=== PATIENT | male | born 1965 | race Caucasian/White ===

== ENCOUNTER 2023-10-28 23:07 | Inpatient (IN) ==
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
[2023-10-28 23:47] LABS: Basophils # (auto) 0.07 K/uL (0.00-0.20); Basophils % (auto) 0.6 %; Eosinophils # (auto) 0.32 K/uL (0.00-0.50); Eosinophils % (auto) 2.7 %; Hematocrit (blood only) 49.6 % (42.0-52.0); Hemoglobin 16.7 g/dl (14.0-18.0); Immature Granulocytes # (auto) 0.11 K/uL (0.01-0.20); Immature Granulocytes % (auto) 0.9 %; Lymphocytes # (auto) 3.69 K/uL (1.20-3.40); Lymphocytes % (auto) 30.7 %; Mean Corpuscular Hemoglobin 29.7 pg (25.0-34.0); Mean Corpuscular Hgb Conc 33.7 g/dL (32.0-36.0); Mean Corpuscular Volume 88.1 fL (80.0-100.0); Mean Platelet Volume 9.3 fL (9.4-12.4); Monocytes # (auto) 1.09 K/uL (0.11-0.59); Monocytes % (auto) 9.1 %; Neutrophils # (auto) 6.73 K/uL (1.40-6.50); Platelet Count 250 K/uL (130-400); RDW Coefficient of Variation 14.6 % (11.5-14.5); RDW Standard Deviation 46.8 fL (36.4-46.3); Red Blood Count 5.63 M/uL (4.70-6.10); White Blood Count 12.01 K/ul (4.8-10.8)
[2023-10-28 23:52] LABS: Appearance Urine Cloudy (Clear); Bacteria Urine Automated None Seen (None Seen); Bilirubin Urine Negative (Negative); Blood Urine Negative (Negative); Cast Urine Automated 0-2 /lpf (0-2); Color Urine Yellow; Epithelial Cell Urine Auto 0-2 /hpf (0-2); Glucose Urine UA Negative (Negative); Ketones Urine Negative (Negative); Leukocyte Esterase Urine Negative (Negative); Nitrite Urine Negative (Negative); Protein Urine Negative (Negative); RBC Urine Automated 0-2 /hpf (0-2); Specific Gravity Urine 1.007 (1.000-1.030); Urobilinogen Urine Negative (Negative); WBC Urine Automated 0-5 /hpf (0-5); pH Urine 5.5 (4.5-7.5)
[2023-10-29 00:04] LABS: Albumin Globulin Ratio 1.4 (0.9-2); Albumin Level 4.5 gm/dl (3.4-5.0); BUN Creatinine Ratio 15.9 (10-20); Bilirubin,Total 0.4 mg/dl (0.2-1.0); Calcium 9.4 mg/dl (8.6-10.3); Est GFR (Non-African American) 97.5 ml/min; Globulin 3.2 gm/dl (2.5-4.0); Total Protein 7.7 gm/dl (6.0-8.3)
[2023-10-29 00:18] LABS: Thyroid Stimulating Hormone 2.431 uIu/ml (0.300-4.500)
[2023-10-29 00:36] LABS: Acetaminophen < 3 ug/ml (10-30); Salicylate < 3.0 mg/dl (3.0-30)
[2023-10-29 00:36] LABS: Amphetamines+Metham, Urine Neg (Neg); Barbiturates, Urine Neg (Neg); Benzodiazepine, Urine Pos (Neg); Cocaine, Urine Neg (Neg); Fentanyl, Urine Neg (Neg); MDMA (Ecstacy), Urine Neg (Neg); Marijuana, Urine Neg (Neg); Methadone, Urine Neg (Neg); Opiate, Urine Neg (Neg); Phencyclidine, Urine Neg (Neg)
[2023-10-29] MEDS: ALBUT/IPRATROP 3MG/0.5MG NEB 3 ML VIAL NEB STA (01:10)
--- NOTE | 2023-10-29 06:35 | XRay Report ---
XR chest 1V portable CLINICAL HISTORY: h/o emphysema COMPARISON STUDY: No previous studies for comparison. FINDINGS: Lung volumes are normal. There is no consolidation. Linear right basilar density represents atelectasis. No pulmonary nodules are identified although sensitivity is diminished given radiograph ic technique. There is no pneumothorax or pleural effusion. Cardiac size is normal. Mediastinal conto urs are normal. There is no evidence for pulmonary edema. IMPRESSION: No acute cardiopulmonary findings. ACT 112: Negative or not required by law. Electronically signed by: Dorian Rosa M.D. 10/29/2023 6:34 AM
--- NOTE | 2023-10-29 09:17 | Emergency Department Note ---
ED Visit Note Patient was signed out to me at change of shift by Dr. Griggs, pending placement for suicidal thoughts. I was contacted later in the morning by case management (Christie Foreman) that the patient has been rejected at multiple facilities secondary to his oxygen requirement as the patient does wear oxygen at night with his history of COPD. He has had episodes of hypoxia here into the high 80s when taken off nasal cannula oxygen. On my assessment here in the ED the patient does exhibit some diminished bilateral breath sounds but otherwise appears comfortable. Given his ongoing medical issues with suicidal thoughts, [facility] and the patient was accepted for inpatient medical care for COPD with supplemental oxygen requirement with psychiatric consultation given his suicidal thoughts. Patient was placed for admission in stable condition. Diagnosis: COPD with hypoxia, suicidal thoughts Disposition: Admission Consultants: Case management (Christie Foreman), Hospitalist (Dr. Pro) Kareem Carter, DO Emergency Medicine .
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
[2023-10-29] MEDS ORDERED: LORazepam 1 MG in SYRINGE 0.5 ML IV PRN (11:21)
[2023-10-29] MEDS ORDERED: GABAPENTIN 1200MG ALCOHOL WITHDRAWAL LOAD PO STA (11:44)
[2023-10-29] MEDS: MULTI-VITAMIN INFUSION 10 ML, THIAMINE HCL 100 MG, FOLIC ACID 1 MG in SODIUM CHLORIDE 0... IV ONE (11:45)
[2023-10-29 11:49] LABS: Basophils # (auto) 0.05 K/uL (0.00-0.20); Basophils % (auto) 0.5 %; Eosinophils # (auto) 0.31 K/uL (0.00-0.50); Hematocrit (blood only) 47.2 % (42.0-52.0); Hemoglobin 16.1 g/dl (14.0-18.0); Immature Granulocytes # (auto) 0.07 K/uL (0.01-0.20); Immature Granulocytes % (auto) 0.7 %; Lymphocytes # (auto) 2.49 K/uL (1.20-3.40); Lymphocytes % (auto) 24.3 %; Mean Corpuscular Hemoglobin 29.9 pg (25.0-34.0); Mean Corpuscular Hgb Conc 34.1 g/dL (32.0-36.0); Mean Corpuscular Volume 87.7 fL (80.0-100.0); Mean Platelet Volume 9.6 fL (9.4-12.4); Monocytes # (auto) 0.97 K/uL (0.11-0.59); Monocytes % (auto) 9.5 %; Neutrophils # (auto) 6.36 K/uL (1.40-6.50); Platelet Count 220 K/uL (130-400); RDW Coefficient of Variation 14.6 % (11.5-14.5); RDW Standard Deviation 46.8 fL (36.4-46.3); Red Blood Count 5.38 M/uL (4.70-6.10); White Blood Count 10.25 K/ul (4.8-10.8)
[2023-10-29] MEDS: GABAPENTIN 600 MG TAB PO ONE (12:01)
[2023-10-29] MEDS: NICOTINE 21 MG/24 HR TDSY TD SCH (12:01)
[2023-10-29 12:15] LABS: BUN Creatinine Ratio 20.2 (10-20); Calcium 9.1 mg/dl (8.6-10.3); Creatinine Clr Calc Pharmacy 92.7 ml/min; Est GFR (African American) 111.9 ml/min; Est GFR (Non-African American) 96.5 ml/min; Potassium 4.3 mmol/L (3.5-5.1)
[2023-10-29] MEDS: ALBUT/IPRATROP 3MG/0.5MG NEB 3 ML VIAL NEB SCH ×2 (12:34→15:08)
[2023-10-29] MEDS: Patient's ALLERGY Info needs ENTERED STA (13:39)
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
[2023-10-29] MEDS: GABAPENTIN 600 MG TAB PO SCH (17:01)
[2023-10-29] MEDS: BUDESONIDE 0.5 MG/2 ML VIAL (PULMICORT) NEB SCH (20:14)
[2023-10-29] MEDS: FORMOTEROL 20 MCG/2 ML VIAL NEB SCH (20:14)
[2023-10-29] MEDS: QUEtiapine FUMARATE 100 MG TABLET PO SCH (20:43)
--- OUTSIDE RECORDS SUMMARY | 2023-10-29 22:08 | External Medical Summary ---
Author Name Unknown Address Unknown Organization [facility] [address] [place] [address] Laboratory Report Ordering Provider Test Date Status Beulah Tabor 10/22/2023 07:01:00 Final Observation Date Value Abnormality Reference (Units ) Status Neutrophils/100 leukocytes in Blood by Automated count 10/22/2023 07:33:55 68.3 (%) Final Lymphocytes/100 leukocytes in Blood by Automated count 10/22/2023 07:33:55 25.7 (%) Final Monocytes/100 leukocytes in Blood by Automated count 10/22/2023 07:33:55 5.0 (%) Final Eosinophils/100 leukocytes in Blood by Automated count 10/22/2023 07:33:55 0.3 (%) Final Basophils/100 leukocytes in Blood by Automated count 10/22/2023 07:33:55 0.3 (%) Final Immature granulocytes/100 leukocytes in Blood 10/22/2023 07:33:55 0.4 (%) Final Neutrophils [#/volume] in Blood by Automated count 10/22/2023 07:33:55 7.71 Above high normal 2.00-7.70 (K/uL) Final Lymphocytes [#/volume] in Blood by Automated count 10/22/2023 07:33:55 2.90 1.00-3.40 (K/uL) Final Monocytes [#/volume] in Blood by Automated count 10/22/2023 07:33:55 0.56 0.00-1.00 (K/uL) Final Eosinophils [#/volume] in Blood by Automated count 10/22/2023 07:33:55 0.03 0.00-0.50 (K/uL) Final Basophils [#/volume] in Blood by Automated count 10/22/2023 07:33:55 0.03 0.00-0.10 (K/uL) Final Immature granulocytes [#/volume] in Blood by Automated count 10/22/2023 07:33:55 0.04 0.00-0.40 (K/uL) Final Performing Location [facility] [address] [address]
--- OUTSIDE RECORDS SUMMARY | 2023-10-29 22:08 | External Medical Summary ---
Author Name Unknown Address Unknown Organization [facility] [employer] [facility] [employer] [facility] [address] [place] [address] Laboratory Report Ordering Provider Test Date Status Beulah Tabor 10/24/2023 06:26:00 Final Observation Date Value Abnormality Reference (Units ) Status Glucose [Mass/volume] in Serum or Plasma 10/24/2023 07:19:26 192 Above high normal 74-109 (mg/dL) Final Urea nitrogen [Mass/volume] in Serum or Plasma 10/24/2023 07:19:26 17 6-23 (mg/dL) Final GLOMERULAR FILTRATION RATE/1.73 SQ M.PREDICTED:ARVRAT:PT :SER/PLAS/BLD:QN:CREA TININE AND CYSTATIN C-BASED FORMULA (CKD-EPI 2020) 10/24/2023 07:19:27 >90 >=60 (mL/min/1.73 m2) Final Creatinine [Mass/volume] in Serum or Plasma 10/24/2023 07:19:26 0.79 0.70-1.30 (mg/dL) Final Sodium [Moles/volume] in Serum or Plasma 10/24/2023 07:19:26 139 136-145 (mmol/L) Final Potassium [Moles/volume] in Serum or Plasma 10/24/2023 07:19:26 4.1 3.5-5.1 (mmol/L) Final Chloride [Moles/volume] in Serum or Plasma 10/24/2023 07:19:26 102 98-107 (mmol/L) Final Carbon dioxide, total [Moles/volume] in Serum or Plasma 10/24/2023 07:19:26 24 22-29 (mmol/L) Final Anion gap 3 in Serum or Plasma 10/24/2023 07:19:27 13 5-14 (mmol/L) Final Calcium [Mass/volume] in Serum or Plasma 10/24/2023 07:19:26 9.3 8.4-10.2 (mg/dL) Final Performing Location [facility] [employer] [address] [address]
--- OUTSIDE RECORDS SUMMARY | 2023-10-29 22:08 | External Medical Summary ---
Author Name Unknown Address Unknown Organization [facility] [employer] [facility] [employer] [facility] [address] [place] [address] Laboratory Report Ordering Provider Test Date Status Beulah Tabor 10/21/2023 06:13:00 Final Observation Date Value Abnormality Reference (Units ) Status Glucose [Mass/volume] in Serum or Plasma 10/21/2023 07:03:34 140 Above high normal 74-109 (mg/dL) Final Urea nitrogen [Mass/volume] in Serum or Plasma 10/21/2023 07:03:34 10 6-23 (mg/dL) Final Creatinine [Mass/volume] in Serum or Plasma 10/21/2023 07:03:34 0.70 0.70-1.30 (mg/dL) Final GLOMERULAR FILTRATION RATE/1.73 SQ M.PREDICTED:ARVRAT:PT :SER/PLAS/BLD:QN:CREA TININE AND CYSTATIN C-BASED FORMULA (CKD-EPI 2020) 10/21/2023 07:03:35 >90 >=60 (mL/min/1.73 m2) Final Sodium [Moles/volume] in Serum or Plasma 10/21/2023 07:03:34 139 136-145 (mmol/L) Final Potassium [Moles/volume] in Serum or Plasma 10/21/2023 07:03:34 4.1 3.5-5.1 (mmol/L) Final Chloride [Moles/volume] in Serum or Plasma 10/21/2023 07:03:34 106 98-107 (mmol/L) Final Carbon dioxide, total [Moles/volume] in Serum or Plasma 10/21/2023 07:03:34 25 22-29 (mmol/L) Final Anion gap 3 in Serum or Plasma 10/21/2023 07:03:35 8 5-14 (mmol/L) Final Calcium [Mass/volume] in Serum or Plasma 10/21/2023 07:03:34 8.7 8.4-10.2 (mg/dL) Final Performing Location [facility] [employer] [address] [address]
--- OUTSIDE RECORDS SUMMARY | 2023-10-29 22:08 | External Medical Summary ---
Author Name Unknown Address Unknown Organization [facility] [address] [place] [address] Laboratory Report Ordering Provider Test Date Status Beulah Tabor 10/23/2023 06:04:00 Final Observation Date Value Abnormality Reference (Units ) Status Leukocytes [#/volume] in Blood by Automated count 10/23/2023 06:56:24 12.03 Above high normal 4.00-10.40 (K/uL) Final Erythrocytes [#/volume] in Blood by Automated count 10/23/2023 06:56:24 4.65 4.40-5.60 (M/uL) Final Hemoglobin [Mass/volume] in Blood 10/23/2023 06:56:24 13.9 13.0-17.0 (g/dL) Final Hematocrit [Volume Fraction] of Blood by Automated count 10/23/2023 06:56:24 42.0 35.0-44.0 (%) Final MCV [Entitic volume] by Automated count 10/23/2023 06:56:24 90.3 81.0-96.0 (fL) Final MCH [Entitic mass] by Automated count 10/23/2023 06:56:24 29.9 28.0-33.0 (pg) Final MCHC [Mass/volume] by Automated count 10/23/2023 06:56:24 33.1 32.0-36.0 (g/dL) Final Erythrocyte distribution width [Ratio] by Automated count 10/23/2023 06:56:24 14.6 Above high normal 11.5-14.2 (%) Final Erythrocyte distribution width [Entitic volume] by Automated count 10/23/2023 06:56:24 48 Final Platelets [#/volume] in Blood by Automated count 10/23/2023 06:56:24 232 150-350 (K/uL) Final Platelet mean volume [Entitic volume] in Blood by Automated count 10/23/2023 06:56:24 9.8 9.0-12.2 (fL) Final Nucleated erythrocytes/100 cells in Bone marrow by Manual count 10/23/2023 06:56:24 0 (/100 WBCs) Final Nucleated erythrocytes [#/volume] in Blood by Manual count 10/23/2023 06:56:24 0.00 (K/uL) Final Performing Location [facility] [address] [address]
--- OUTSIDE RECORDS SUMMARY | 2023-10-29 22:08 | External Medical Summary ---
Author Name Unknown Address Unknown Organization [facility] [employer] [facility] [employer] [facility] [address] [place] [address] Laboratory Report Ordering Provider Test Date Status Beulah Tabor 10/23/2023 06:04:00 Final Observation Date Value Abnormality Reference (Units ) Status Glucose [Mass/volume] in Serum or Plasma 10/23/2023 06:57:45 262 Above high normal 74-109 (mg/dL) Final Urea nitrogen [Mass/volume] in Serum or Plasma 10/23/2023 06:57:45 11 6-23 (mg/dL) Final GLOMERULAR FILTRATION RATE/1.73 SQ M.PREDICTED:ARVRAT:PT :SER/PLAS/BLD:QN:CREA TININE AND CYSTATIN C-BASED FORMULA (CKD-EPI 2020) 10/23/2023 06:57:46 >90 >=60 (mL/min/1.73 m2) Final Creatinine [Mass/volume] in Serum or Plasma 10/23/2023 06:57:45 0.64 Below low normal 0.70-1.30 (mg/dL) Final Sodium [Moles/volume] in Serum or Plasma 10/23/2023 06:57:45 139 136-145 (mmol/L) Final Potassium [Moles/volume] in Serum or Plasma 10/23/2023 06:57:45 4.3 3.5-5.1 (mmol/L) Final Chloride [Moles/volume] in Serum or Plasma 10/23/2023 06:57:45 104 98-107 (mmol/L) Final Carbon dioxide, total [Moles/volume] in Serum or Plasma 10/23/2023 06:57:45 24 22-29 (mmol/L) Final Anion gap 3 in Serum or Plasma 10/23/2023 06:57:46 11 5-14 (mmol/L) Final Calcium [Mass/volume] in Serum or Plasma 10/23/2023 06:57:45 8.5 8.4-10.2 (mg/dL) Final Performing Location [facility] [employer] [address] [address]
--- OUTSIDE RECORDS SUMMARY | 2023-10-29 22:08 | External Medical Summary ---
Author Name Unknown Address Unknown Organization [facility] [employer] [facility] [employer] [facility] [address] [place] [address] [place] [address] Laboratory Report Ordering Provider Test Date Status Beulah Tabor 10/21/2023 06:13:00 Final Observation Date Value Abnormality Reference (Units ) Status Hemoglobin A1c/Hemoglobin.total in Blood 10/21/2023 10:53:44 5.9 4.0-6.4 (%) Final Glucose mean value [Mass/volume] in Blood Estimated from glycated hemoglobin 10/21/2023 10:53:44 122.6 <=125.0 (mg/dL) Final Performing Location [facility] [employer] [address] [place] [address] [place] [address]
--- OUTSIDE RECORDS SUMMARY | 2023-10-29 22:08 | External Medical Summary ---
Author Name Unknown Address Unknown Organization [facility] [address] [place] [address] Laboratory Report Ordering Provider Test Date Status Beulah Tabor 10/24/2023 06:26:00 Final Observation Date Value Abnormality Reference (Units ) Status Neutrophils/100 leukocytes in Blood by Automated count 10/24/2023 07:30:17 64.0 (%) Final Lymphocytes/100 leukocytes in Blood by Automated count 10/24/2023 07:30:17 28.6 (%) Final Monocytes/100 leukocytes in Blood by Automated count 10/24/2023 07:30:17 5.5 (%) Final Eosinophils/100 leukocytes in Blood by Automated count 10/24/2023 07:30:17 0.5 (%) Final Basophils/100 leukocytes in Blood by Automated count 10/24/2023 07:30:17 0.3 (%) Final Immature granulocytes/100 leukocytes in Blood 10/24/2023 07:30:17 1.1 (%) Final Neutrophils [#/volume] in Blood by Automated count 10/24/2023 07:30:17 8.19 Above high normal 2.00-7.70 (K/uL) Final Lymphocytes [#/volume] in Blood by Automated count 10/24/2023 07:30:17 3.66 Above high normal 1.00-3.40 (K/uL) Final Monocytes [#/volume] in Blood by Automated count 10/24/2023 07:30:17 0.70 0.00-1.00 (K/uL) Final Eosinophils [#/volume] in Blood by Automated count 10/24/2023 07:30:17 0.07 0.00-0.50 (K/uL) Final Basophils [#/volume] in Blood by Automated count 10/24/2023 07:30:17 0.04 0.00-0.10 (K/uL) Final Immature granulocytes [#/volume] in Blood by Automated count 10/24/2023 07:30:17 0.14 0.00-0.40 (K/uL) Final Performing Location [facility] [address] [address]
--- OUTSIDE RECORDS SUMMARY | 2023-10-29 22:08 | External Medical Summary ---
Author Name Unknown Address Unknown Organization [facility] [address] [place] [address] Laboratory Report Ordering Provider Test Date Status Beulah Tabor 10/24/2023 06:26:00 Final Observation Date Value Abnormality Reference (Units ) Status Leukocytes [#/volume] in Blood by Automated count 10/24/2023 07:30:17 12.80 Above high normal 4.00-10.40 (K/uL) Final Erythrocytes [#/volume] in Blood by Automated count 10/24/2023 07:30:17 4.48 4.40-5.60 (M/uL) Final Hemoglobin [Mass/volume] in Blood 10/24/2023 07:30:17 13.6 13.0-17.0 (g/dL) Final Hematocrit [Volume Fraction] of Blood by Automated count 10/24/2023 07:30:17 40.4 35.0-44.0 (%) Final MCV [Entitic volume] by Automated count 10/24/2023 07:30:17 90.2 81.0-96.0 (fL) Final MCH [Entitic mass] by Automated count 10/24/2023 07:30:17 30.4 28.0-33.0 (pg) Final MCHC [Mass/volume] by Automated count 10/24/2023 07:30:17 33.7 32.0-36.0 (g/dL) Final Erythrocyte distribution width [Ratio] by Automated count 10/24/2023 07:30:17 14.6 Above high normal 11.5-14.2 (%) Final Platelets [#/volume] in Blood by Automated count 10/24/2023 07:30:17 224 150-350 (K/uL) Final Erythrocyte distribution width [Entitic volume] by Automated count 10/24/2023 07:30:17 48 Final Platelet mean volume [Entitic volume] in Blood by Automated count 10/24/2023 07:30:17 9.6 9.0-12.2 (fL) Final Nucleated erythrocytes/100 cells in Bone marrow by Manual count 10/24/2023 07:30:17 0 (/100 WBCs) Final Nucleated erythrocytes [#/volume] in Blood by Manual count 10/24/2023 07:30:17 0.00 (K/uL) Final Performing Location [facility] [address] [address]
--- OUTSIDE RECORDS SUMMARY | 2023-10-29 22:08 | External Medical Summary ---
Author Name Unknown Address Unknown Organization [facility] [address] [place] [address] Laboratory Report Ordering Provider Test Date Status Beulah Tabor 10/21/2023 06:13:00 Final Observation Date Value Abnormality Reference (Units ) Status Leukocytes [#/volume] in Blood by Automated count 10/21/2023 06:56:48 11.78 Above high normal 4.00-10.40 (K/uL) Final Erythrocytes [#/volume] in Blood by Automated count 10/21/2023 06:56:48 4.72 4.40-5.60 (M/uL) Final Hemoglobin [Mass/volume] in Blood 10/21/2023 06:56:48 14.2 13.0-17.0 (g/dL) Final Hematocrit [Volume Fraction] of Blood by Automated count 10/21/2023 06:56:48 42.9 35.0-44.0 (%) Final MCV [Entitic volume] by Automated count 10/21/2023 06:56:48 90.9 81.0-96.0 (fL) Final MCH [Entitic mass] by Automated count 10/21/2023 06:56:48 30.1 28.0-33.0 (pg) Final MCHC [Mass/volume] by Automated count 10/21/2023 06:56:48 33.1 32.0-36.0 (g/dL) Final Erythrocyte distribution width [Ratio] by Automated count 10/21/2023 06:56:48 14.4 Above high normal 11.5-14.2 (%) Final Platelets [#/volume] in Blood by Automated count 10/21/2023 06:56:48 232 150-350 (K/uL) Final Erythrocyte distribution width [Entitic volume] by Automated count 10/21/2023 06:56:48 48 Final Platelet mean volume [Entitic volume] in Blood by Automated count 10/21/2023 06:56:48 9.6 9.0-12.2 (fL) Final Nucleated erythrocytes/100 cells in Bone marrow by Manual count 10/21/2023 06:56:48 0 (/100 WBCs) Final Nucleated erythrocytes [#/volume] in Blood by Manual count 10/21/2023 06:56:48 0.00 (K/uL) Final Performing Location [facility] [address] [address]
--- OUTSIDE RECORDS SUMMARY | 2023-10-29 22:08 | External Medical Summary ---
Author Name Unknown Address Unknown Organization [facility] [employer] [facility] [employer] [facility] [address] [place] [address] Laboratory Report Ordering Provider Test Date Status [...] 06:57:45 8.5 8.4-10.2 (mg/dL) Final Performing Location [facility] [employer] [address] [address]
--- OUTSIDE RECORDS SUMMARY | 2023-10-29 22:08 | External Medical Summary ---
Author Name Unknown Address Unknown Organization [facility] [address] [place] [address] Laboratory Report Ordering Provider Test Date Status Beulah Tabor 10/22/2023 07:01:00 Final Observation Date Value Abnormality Reference (Units ) Status Leukocytes [#/volume] in Blood by Automated count 10/22/2023 07:33:55 11.27 Above high normal 4.00-10.40 (K/uL) Final Erythrocytes [#/volume] in Blood by Automated count 10/22/2023 07:33:55 4.74 4.40-5.60 (M/uL) Final Hemoglobin [Mass/volume] in Blood 10/22/2023 07:33:55 14.1 13.0-17.0 (g/dL) Final Hematocrit [Volume Fraction] of Blood by Automated count 10/22/2023 07:33:55 42.8 35.0-44.0 (%) Final MCV [Entitic volume] by Automated count 10/22/2023 07:33:55 90.3 81.0-96.0 (fL) Final MCH [Entitic mass] by Automated count 10/22/2023 07:33:55 29.7 28.0-33.0 (pg) Final MCHC [Mass/volume] by Automated count 10/22/2023 07:33:55 32.9 32.0-36.0 (g/dL) Final Erythrocyte distribution width [Ratio] by Automated count 10/22/2023 07:33:55 14.3 Above high normal 11.5-14.2 (%) Final Platelets [#/volume] in Blood by Automated count 10/22/2023 07:33:55 221 150-350 (K/uL) Final Erythrocyte distribution width [Entitic volume] by Automated count 10/22/2023 07:33:55 48 Final Platelet mean volume [Entitic volume] in Blood by Automated count 10/22/2023 07:33:55 9.2 9.0-12.2 (fL) Final Nucleated erythrocytes/100 cells in Bone marrow by Manual count 10/22/2023 07:33:55 0 (/100 WBCs) Final Nucleated erythrocytes [#/volume] in Blood by Manual count 10/22/2023 07:33:55 0.00 (K/uL) Final Performing Location [facility] [address] [address]
--- OUTSIDE RECORDS SUMMARY | 2023-10-29 22:08 | External Medical Summary ---
Author Name Unknown Address Unknown Organization [facility] [employer] [facility] [address] [place] [address] Laboratory Report Ordering Provider Test Date Status Beulah Tabor 10/21/2023 06:13:00 Final Observation Date Value Abnormality Reference (Units ) Status Neutrophils/100 leukocytes in Blood by Automated count 10/21/2023 06:56:48 70.2 (%) Final Lymphocytes/100 leukocytes in Blood by Automated count 10/21/2023 06:56:48 23.3 (%) Final Monocytes/100 leukocytes in Blood by Automated count 10/21/2023 06:56:48 5.5 (%) Final Eosinophils/100 leukocytes in Blood by Automated count 10/21/2023 06:56:48 0.2 (%) Final Basophils/100 leukocytes in Blood by Automated count 10/21/2023 06:56:48 0.3 (%) Final Immature granulocytes/100 leukocytes in Blood 10/21/2023 06:56:48 0.5 (%) Final Neutrophils [#/volume] in Blood by Automated count 10/21/2023 06:56:48 8.26 Above high normal 2.00-7.70 (K/uL) Final Lymphocytes [#/volume] in Blood by Automated count 10/21/2023 06:56:48 2.75 1.00-3.40 (K/uL) Final Monocytes [#/volume] in Blood by Automated count 10/21/2023 06:56:48 0.65 0.00-1.00 (K/uL) Final Eosinophils [#/volume] in Blood by Automated count 10/21/2023 06:56:48 0.02 0.00-0.50 (K/uL) Final Basophils [#/volume] in Blood by Automated count 10/21/2023 06:56:48 0.04 0.00-0.10 (K/uL) Final Immature granulocytes [#/volume] in Blood by Automated count 10/21/2023 06:56:48 0.06 0.00-0.40 (K/uL) Final Performing Location [facility] [address] [address]
--- OUTSIDE RECORDS SUMMARY | 2023-10-29 22:08 | External Medical Summary ---
Author Name Unknown Address Unknown Organization [facility] [address] [place] [address] Laboratory Report Ordering Provider Test Date Status Beulah Tabor 10/23/2023 06:04:00 Final Observation Date Value Abnormality Reference (Units ) Status Neutrophils/100 leukocytes in Blood by Automated count 10/23/2023 06:56:24 70.9 (%) Final Lymphocytes/100 leukocytes in Blood by Automated count 10/23/2023 06:56:24 23.3 (%) Final Monocytes/100 leukocytes in Blood by Automated count 10/23/2023 06:56:24 4.4 (%) Final Eosinophils/100 leukocytes in Blood by Automated count 10/23/2023 06:56:24 0.3 (%) Final Basophils/100 leukocytes in Blood by Automated count 10/23/2023 06:56:24 0.4 (%) Final Immature granulocytes/100 leukocytes in Blood 10/23/2023 06:56:24 0.7 (%) Final Neutrophils [#/volume] in Blood by Automated count 10/23/2023 06:56:24 8.53 Above high normal 2.00-7.70 (K/uL) Final Lymphocytes [#/volume] in Blood by Automated count 10/23/2023 06:56:24 2.80 1.00-3.40 (K/uL) Final Monocytes [#/volume] in Blood by Automated count 10/23/2023 06:56:24 0.53 0.00-1.00 (K/uL) Final Eosinophils [#/volume] in Blood by Automated count 10/23/2023 06:56:24 0.04 0.00-0.50 (K/uL) Final Basophils [#/volume] in Blood by Automated count 10/23/2023 06:56:24 0.05 0.00-0.10 (K/uL) Final Immature granulocytes [#/volume] in Blood by Automated count 10/23/2023 06:56:24 0.08 0.00-0.40 (K/uL) Final Performing Location [facility] [address] [address]
--- OUTSIDE RECORDS SUMMARY | 2023-10-29 22:08 | External Medical Summary ---
Author Name Unknown Address Unknown Organization [facility] [employer] Chemistry:[facility] [employer] Chemistry [address] [place] [address] Laboratory Report Ordering Provider Test Date Status Beulah Tabor 10/22/2023 07:01:00 Final Observation Date Value Abnormality Reference (Units ) Status Glucose [Mass/volume] in Serum or Plasma 10/22/2023 08:05:33 175 Above high normal 74-109 (mg/dL) Final Urea nitrogen [Mass/volume] in Serum or Plasma 10/22/2023 08:05:33 11 6-23 (mg/dL) Final GLOMERULAR FILTRATION RATE/1.73 SQ M.PREDICTED:ARVRAT:PT :SER/PLAS/BLD:QN:CREA TININE AND CYSTATIN C-BASED FORMULA (CKD-EPI 2020) 10/22/2023 08:05:34 >90 >=60 (mL/min/1.73 m2) Final Creatinine [Mass/volume] in Serum or Plasma 10/22/2023 08:05:33 0.60 Below low normal 0.70-1.30 (mg/dL) Final Sodium [Moles/volume] in Serum or Plasma 10/22/2023 08:05:33 140 136-145 (mmol/L) Final Potassium [Moles/volume] in Serum or Plasma 10/22/2023 08:05:33 4.1 3.5-5.1 (mmol/L) Final Chloride [Moles/volume] in Serum or Plasma 10/22/2023 08:05:33 106 98-107 (mmol/L) Final Carbon dioxide, total [Moles/volume] in Serum or Plasma 10/22/2023 08:05:33 25 22-29 (mmol/L) Final Anion gap 3 in Serum or Plasma 10/22/2023 08:05:34 9 5-14 (mmol/L) Final Calcium [Mass/volume] in Serum or Plasma 10/22/2023 08:05:33 8.6 8.4-10.2 (mg/dL) Final Performing Location [facility] [employer] Gas Meter Installer [employer] [address] [address]
--- OUTSIDE RECORDS SUMMARY | 2023-10-29 22:09 | External Medical Summary ---
Author Name Unknown Address Unknown Organization [facility] [employer] Chemistry:[facility] Chemistry [address] [place] [address] Laboratory Report Ordering Provider Test Date Status Yung Watson 10/18/2023 23:04:00 Final Observation Date Value Abnormality Reference (Units ) Status Troponin T.cardiac [Mass/volume] in Serum or Plasma 10/18/2023 23:43:31 7 0-22 (ng/L) Final Performing Location [facility] [employer] Structural Steel Fitter ry [address] [place] [address]
--- OUTSIDE RECORDS SUMMARY | 2023-10-29 22:09 | External Medical Summary ---
Author Name Unknown Address Unknown Organization [facility] [employer] Chemistry:[facility] [employer] Chemistry [address] [place] [address] Laboratory Report Ordering Provider Test Date Status Ellis Norton 10/18/2023 23:04:00 Final Observation Date Value Abnormality Reference (Units ) Status Lipase [Enzymatic activity/volume] in Serum or Plasma 10/19/2023 03:53:45 60 13-60 (unit/L) Final Performing Location [facility] [employer] Card Hand ry [address] [place] [address]
--- OUTSIDE RECORDS SUMMARY | 2023-10-29 22:09 | External Medical Summary ---
Author Name Unknown Address Unknown Organization [facility] [employer] Chemistry:[facility] [employer] Chemistry [address] [place] [address] Laboratory Report Ordering Provider Test Date Status WalterZachYung 10/18/2023 22:57:00 Final Observation Date Value Abnormality Reference (Units) Status Amphetamine [Presence] in Urine by Screen method 10/18/2023 23:29:41 Not Detected^Not Detected Not Detected Final Benzodiazepines [Presence] in Urine by Screen method 10/18/2023 23:29:41 Not Detected^Not Detected Not Detected Final Cannabinoids [Presence] in Urine by Screen method 10/18/2023 23:29:41 Not Detected^Not Detected Not Detected Final Benzoylecgonine [Presence] in Urine 10/18/2023 23:29:41 Not Detected^Not Detected Not Detected Final HYDROcodone [Presence] in Urine by Screen method 10/18/2023 23:29:41 Not Detected^Not Detected Not Detected Final Drug Level
Amphetamines 500 ng/mL
Benzodiazepines 100 ng/mL
Cannabinoids 50 ng/mL
Cocain Metabolite 150 ng/mL
Hydrocodone 100 ng/mL
Methadone Metabolite 100 ng/mL
Morphine/ Codeine 300 ng/mL
Oxycodone 100 ng/mL

The above screening results are presumptive and can only be used for medical purposes. Confirmatory testing is available upon request.
Intended for medical treatment only. U Fentanyl Scr 10/18/2023 23:29:41 Not Detected^Not Detected Final Fentanyl Assay Cutoff >=5 ng /mL
The above screening results are presumptive and can only be used for medical purposes. Confirmatory testing is available upon request. Intended for medical treatment only. Methadone [Presence] in Urine 10/18/2023 23:29:41 Not Detected^Not Detected Not Detected Final Opiates [Presence] in Urine by Screen method 10/18/2023 23:29:41 Not Detected^Not Detected Not Detected Final oxyCODONE [Presence] in Urine 10/18/2023 23:29:41 Not Detected^Not Detected Not Detected Final Performing Location [facility] [employer] Cellophaner [employer] [address] [place] [address]
--- OUTSIDE RECORDS SUMMARY | 2023-10-29 22:09 | External Medical Summary ---
Author Name Unknown Address Unknown Organization [facility] [employer] Chemistry:[facility] [employer] Chemistry [address] [place] [address] Laboratory Report Ordering Provider Test Date Status Yung Watson 10/18/2023 17:40:00 Final Observation Date Value Abnormality Reference (Units ) Status Glucose [Mass/volume] in Serum or Plasma 10/18/2023 18:14:27 114 Above high normal 74-109 (mg/dL) Final Urea nitrogen [Mass/volume] in Serum or Plasma 10/18/2023 18:14:27 7 6-23 (mg/dL) Final Creatinine [Mass/volume] in Serum or Plasma 10/18/2023 18:14:27 0.62 Below low normal 0.70-1.30 (mg/dL) Final GLOMERULAR FILTRATION RATE/1.73 SQ M.PREDICTED:ARVRAT:PT:SER /PLAS/BLD:QN:CREATININE AND CYSTATIN C-BASED FORMULA (CKD-EPI 2020) 10/18/2023 18:14:30 >90 >=60 (mL/min/1.73 m2) Final Sodium [Moles/volume] in Serum or Plasma 10/18/2023 18:14:27 137 136-145 (mmol/L) Final Potassium [Moles/volume] in Serum or Plasma 10/18/2023 18:14:27 3.8 3.5-5.1 (mmol/L) Final Chloride [Moles/volume] in Serum or Plasma 10/18/2023 18:14:27 100 98-107 (mmol/L) Final Carbon dioxide, total [Moles/volume] in Serum or Plasma 10/18/2023 18:14:27 23 22-29 (mmol/L) Final Anion gap 3 in Serum or Plasma 10/18/2023 18:14:30 14 5-14 (mmol/L) Final Calcium [Mass/volume] in Serum or Plasma 10/18/2023 18:14:27 8.7 8.4-10.2 (mg/dL) Final Protein [Mass/volume] in Serum or Plasma 10/18/2023 18:14:27 6.6 6.4-8.3 (g/dL) Final Albumin [Mass/volume] in Serum or Plasma by Bromocresol green (BCG) dye binding method 10/18/2023 18:14:27 4.1 3.5-5.2 (g/dL) Final Bilirubin.total [Mass/volume] in Serum or Plasma 10/18/2023 18:14:27 0.3 0.0-1.2 (mg/dL) Final Aspartate aminotransferase [Enzymatic activity/volume] in Serum or Plasma 10/18/2023 18:14:27 18 0-40 (unit/L) Final Alanine aminotransferase [Enzymatic activity/volume] in Serum or Plasma 10/18/2023 18:14:27 12 0-41 (unit/L) Final Alkaline phosphatase [Enzymatic activity/volume] in Serum or Plasma 10/18/2023 18:14:27 59 40-130 (unit/L) Final Performing Location [facility] [employer] Healthcare Insurance Sales Agent ry [address] [address]
--- OUTSIDE RECORDS SUMMARY | 2023-10-29 22:09 | External Medical Summary ---
Author Name Unknown Address Unknown Organization [facility] [employer] Chemistry:[facility] [employer] [facility] [address] [place] [address] Laboratory Report Ordering Provider Test Date Status Ellis Norton 10/19/2023 08:38:00 Final Observation Date Value Abnormality Reference (Units ) Status Protein [Mass/volume] in Serum or Plasma 10/19/2023 10:07:42 6.0 Below low normal 6.4-8.3 (g/dL) Final Albumin [Mass/volume] in Serum or Plasma by Bromocresol green (BCG) dye binding method 10/19/2023 10:07:42 3.8 3.5-5.2 (g/dL) Final Bilirubin.total [Mass/volume] in Serum or Plasma 10/19/2023 10:07:42 0.3 0.0-1.2 (mg/dL) Final Bilirubin.direct [Mass/volume] in Serum or Plasma 10/19/2023 10:07:42 <0.2 <=0.3 (mg/dL) Final Aspartate aminotransferase [Enzymatic activity/volume] in Serum or Plasma 10/19/2023 10:07:42 17 0-40 (unit/L) Final Alanine aminotransferase [Enzymatic activity/volume] in Serum or Plasma 10/19/2023 10:07:42 12 0-41 (unit/L) Final Alkaline phosphatase [Enzymatic activity/volume] in Serum or Plasma 10/19/2023 10:07:42 55 40-130 (unit/L) Final Performing Location [facility] [employer] ry [address] [place] [address]
--- OUTSIDE RECORDS SUMMARY | 2023-10-29 22:09 | External Medical Summary ---
Author Name Unknown Address Unknown Organization [facility] [email or web address] Coagulation:[facility] [employer] [facility] [address] [place] [address] Laboratory Report Ordering Provider Test Date Status Erick Sow 10/20/2023 06:31:00 Final Observation Date Value Abnormality Reference (Units ) Status Fibrin D-dimer FEU [Mass/volume] in Platelet poor plasma 10/20/2023 08:02:50 0.51 <=0.53 (ug/mL FEU) Final The clinical d-dimer cut-off value of <0.5 ug/mL FEU has been established by the plasma processor for the exclusion of pulmonary embolism and/or deep venous thrombosis in outpatients with low pre-test probability. Performing Location [facility] [address] [place] [address] [place] [address]
--- OUTSIDE RECORDS SUMMARY | 2023-10-29 22:09 | External Medical Summary ---
Author Name Unknown Address Unknown Organization [facility] [address] [place] [address] Laboratory Report Ordering Provider Test Date Status Beulah Tabor 10/19/2023 11:47:00 Final Observation Date Value Abnormality Reference (Units) Status Specimen type 10/19/2023 13:29:12 Nasopharyngeal^ Nasopharyngeal Final Adenovirus DNA [Presence] in Nasopharynx by JHONNY with non-probe detection 10/19/2023 13:13:32 Not Detected^Not Detected Not Detected Final Human coronavirus 229E RNA [Presence] in Specimen by JHONNY with probe detection 10/19/2023 13:13:32 Not Detected^Not Detected Not Detected Final Human coronavirus HKU1 RNA [Presence] in Specimen by JHONNY with probe detection 10/19/2023 13:13:32 Not Detected^Not Detected Not Detected Final Human coronavirus NL63 RNA [Presence] in Specimen by JHONNY with probe detection 10/19/2023 13:13:32 Not Detected^Not Detected Not Detected Final Human coronavirus OC43 RNA [Presence] in Specimen by JHONNY with probe detection 10/19/2023 13:13:32 Not Detected^Not Detected Not Detected Final SARS-CoV-2 (COVID-19) RNA [Presence] in Nasopharynx by JHONNY with non-probe detection 10/19/2023 13:13:32 Not Detected^Not Detected Not Detected Final Human metapneumovirus RNA [Presence] in Specimen by JHONNY with probe detection 10/19/2023 13:13:32 Not Detected^Not Detected Not Detected Final Rhinovirus+Enterovirus RNA [Presence] in Specimen by JHONNY with probe detection 10/19/2023 13:13:32 Not Detected^Not Detected Not Detected Final Influenza virus A RNA [Presence] in Nasopharynx by JHONNY with non-probe detection 10/19/2023 13:13:32 Not Detected^Not Detected Not Detected Final Influenza virus A H1 RNA [Presence] in Nasopharynx by JHONNY with non-probe detection 10/19/2023 13:29:12 Not Detected^Not Detected Not Detected Final Influenza virus A H1 2009 pandemic RNA [Presence] in Nasopharynx by JHONNY with non-probe detection 10/19/2023 13:29:12 Not Detected^Not Detected Not Detected Final Influenza virus A H3 RNA [Presence] in Nasopharynx by JHONNY with non-probe detection 10/19/2023 13:29:12 Not Detected^Not Detected Not Detected Final Influenza virus B RNA [Presence] in Nasopharynx by JHONNY with non-probe detection 10/19/2023 13:13:32 Not Detected^Not Detected Not Detected Final Parainfluenza virus 1 RNA [Presence] in Nasopharynx by JHONNY with non-probe detection 10/19/2023 13:13:32 Not Detected^Not Detected Not Detected Final Parainfluenza virus 2 RNA [Presence] in Nasopharynx by JHONNY with non-probe detection 10/19/2023 13:13:32 Not Detected^Not Detected Not Detected Final Parainfluenza virus 3 RNA [Presence] in Nasopharynx by JHONNY with non-probe detection 10/19/2023 13:13:32 Not Detected^Not Detected Not Detected Final Parainfluenza virus 4 RNA [Presence] in Nasopharynx by JHONNY with non-probe detection 10/19/2023 13:13:32 Not Detected^Not Detected Not Detected Final Respiratory syncytial virus RNA [Presence] in Nasopharynx by JHONNY with non-probe detection 10/19/2023 13:13:32 Not Detected^Not Detected Not Detected Final Bordetella parapertussis [id number] DNA [Presence] in Nasopharynx by JHONNY with non-probe detection 10/19/2023 13:13:32 Not Detected^Not Detected Not Detected Final Bordetella pertussis.pertussis toxin promoter region [Presence] in Nasopharynx by JHONNY with non-probe detection 10/19/2023 13:13:32 Not Detected^Not Detected Not Detected Final Chlamydophila pneumoniae DNA [Presence] in Specimen by JHONNY with probe detection 10/19/2023 13:13:32 Not Detected^Not Detected Not Detected Final Mycoplasma pneumoniae DNA [Presence] in Nasopharynx by JHONNY with non-probe detection 10/19/2023 13:13:32 Not Detected^Not Detected Not Detected Final Respiratory viral pathogens DNA and RNA panel - Respiratory specimen Qualitative by JHONNY with probe detection 10/19/2023 13:29:12 Not Detected^Not Detected Not Detected Final Performing Location [facility] [address] [place] [address]
--- OUTSIDE RECORDS SUMMARY | 2023-10-29 22:09 | External Medical Summary ---
Author Name Unknown Address Unknown Organization [facility] [employer] Chemistry:[facility] [employer] Chemistry [address] [place] [address] Laboratory Report Ordering Provider Test Date Status ErrolMatthewchaka 10/19/2023 08:38:00 Final Observation Date Value Abnormality Reference (Units ) Status Phosphate [Mass/volume] in Serum or Plasma 10/19/2023 10:07:42 1.9 Below low normal 2.5-4.5 (mg/dL) Final Performing Location [facility] [employer] Slot Operations Director ry [address] [place] [address]
--- OUTSIDE RECORDS SUMMARY | 2023-10-29 22:09 | External Medical Summary ---
Author Name Unknown Address Unknown Organization [facility] H[facility] [address] [place] [address] Laboratory Report Ordering Provider Test Date Status Yung Watson 10/18/2023 17:40:00 Final Observation Date Value Abnormality Reference (Units ) Status Neutrophils/100 leukocytes in Blood by Automated count 10/18/2023 17:56:22 53.0 (%) Final Lymphocytes/100 leukocytes in Blood by Automated count 10/18/2023 17:56:22 41.3 (%) Final Monocytes/100 leukocytes in Blood by Automated count 10/18/2023 17:56:22 4.6 (%) Final Eosinophils/100 leukocytes in Blood by Automated count 10/18/2023 17:56:22 0.3 (%) Final Basophils/100 leukocytes in Blood by Automated count 10/18/2023 17:56:22 0.6 (%) Final Immature granulocytes/100 leukocytes in Blood 10/18/2023 17:56:22 0.2 (%) Final Neutrophils [#/volume] in Blood by Automated count 10/18/2023 17:56:22 4.57 2.00-7.70 (K/uL) Final Lymphocytes [#/volume] in Blood by Automated count 10/18/2023 17:56:22 3.56 Above high normal 1.00-3.40 (K/uL) Final Monocytes [#/volume] in Blood by Automated count 10/18/2023 17:56:22 0.40 0.00-1.00 (K/uL) Final Eosinophils [#/volume] in Blood by Automated count 10/18/2023 17:56:22 0.03 0.00-0.50 (K/uL) Final Basophils [#/volume] in Blood by Automated count 10/18/2023 17:56:22 0.05 0.00-0.10 (K/uL) Final Immature granulocytes [#/volume] in Blood by Automated count 10/18/2023 17:56:22 0.02 0.00-0.40 (K/uL) Final Performing Location [facility] [address] [address]
--- OUTSIDE RECORDS SUMMARY | 2023-10-29 22:09 | External Medical Summary ---
Author Name Unknown Address Unknown Organization [facility] [employer] Chemistry:[facility] [employer] Chemistry [address] [place] [address] Laboratory Report Ordering Provider Test Date Status Yung Watson 10/18/2023 17:40:00 Final Observation Date Value Abnormality Reference (Units ) Status Troponin T.cardiac [Mass/volume] in Serum or Plasma 10/18/2023 18:14:29 7 0-22 (ng/L) Final Performing Location [facility] [employer] Electric Deicer Assembler ry [address] [place] [address]
--- OUTSIDE RECORDS SUMMARY | 2023-10-29 22:09 | External Medical Summary ---
Author Name Unknown Address Unknown Organization [facility] [employer] Chemistry:[facility] [employer] Chemistry [address] [place] [address] Laboratory Report Ordering Provider Test Date Status Ellis Norton 10/20/2023 06:31:00 Final Observation Date Value Abnormality Reference (Units ) Status Magnesium [Mass/volume] in Serum or Plasma 10/20/2023 07:30:20 2.0 1.6-2.6 (mg/dL) Final Performing Location [facility] [employer] Outdoor Education Teacher ry [address] [place] [address]
--- OUTSIDE RECORDS SUMMARY | 2023-10-29 22:09 | External Medical Summary ---
Author Name Unknown Address Unknown Organization [facility] [employer] Chemistry:[facility] [employer] Chemistry [address] [place] [address] Laboratory Report Ordering Provider Test Date Status Yung Watson 10/18/2023 23:04:00 Final Observation Date Value Abnormality Reference (Units ) Status Ethanol [Mass/volume] in Serum or Plasma 10/19/2023 01:08:43 160.0 Above high normal <=10.1 (mg/dL) Final Performing Location [facility] [employer] Senior Net Web Developer ry [address] [place] [address]
--- OUTSIDE RECORDS SUMMARY | 2023-10-29 22:09 | External Medical Summary ---
Author Name Unknown Address Unknown Organization [facility] [employer] Chemistry:[facility] [employer] Chemistry [address] [place] [address] Laboratory Report Ordering Provider Test Date Status Beulah Tabor 10/20/2023 06:31:00 Final Observation Date Value Abnormality Reference (Units ) Status Glucose [Mass/volume] in Serum or Plasma 10/20/2023 07:30:21 97 74-109 (mg/dL) Final Urea nitrogen [Mass/volume] in Serum or Plasma 10/20/2023 07:30:21 11 6-23 (mg/dL) Final GLOMERULAR FILTRATION RATE/1.73 SQ M.PREDICTED:ARVRAT:PT:S ER/PLAS/BLD:QN:CREATINI NE AND CYSTATIN C-BASED FORMULA (CKD-EPI 2020) 10/20/2023 07:30:22 >90 >=60 (mL/min/1.73 m2) Final Creatinine [Mass/volume] in Serum or Plasma 10/20/2023 07:30:21 0.81 0.70-1.30 (mg/dL) Final Sodium [Moles/volume] in Serum or Plasma 10/20/2023 07:30:21 142 136-145 (mmol/L) Final Potassium [Moles/volume] in Serum or Plasma 10/20/2023 07:30:21 4.0 3.5-5.1 (mmol/L) Final Chloride [Moles/volume] in Serum or Plasma 10/20/2023 07:30:21 105 98-107 (mmol/L) Final Carbon dioxide, total [Moles/volume] in Serum or Plasma 10/20/2023 07:30:21 26 22-29 (mmol/L) Final Anion gap 3 in Serum or Plasma 10/20/2023 07:30:22 11 5-14 (mmol/L) Final Calcium [Mass/volume] in Serum or Plasma 10/20/2023 07:30:21 8.7 8.4-10.2 (mg/dL) Final Performing Location [facility] [employer] Marketing Effectiveness Manager ry [address] [place] [address]
--- OUTSIDE RECORDS SUMMARY | 2023-10-29 22:09 | External Medical Summary ---
Author Name Unknown Address Unknown Organization [facility] [employer] Hematology:[facility] [employer] Hematology [address] [place] [address] Laboratory Report Ordering Provider Test Date Status Ellis Norton 10/19/2023 08:38:00 Final Observation Date Value Abnormality Reference (Units ) Status Leukocytes [#/volume] in Blood by Automated count 10/19/2023 09:50:45 7.62 4.00-10.40 (K/uL) Final Erythrocytes [#/volume] in Blood by Automated count 10/19/2023 09:50:45 4.98 4.40-5.60 (M/uL) Final Hemoglobin [Mass/volume] in Blood 10/19/2023 09:50:45 14.9 13.0-17.0 (g/dL) Final Hematocrit [Volume Fraction] of Blood by Automated count 10/19/2023 09:50:45 44.2 Above high normal 35.0-44.0 (%) Final MCV [Entitic volume] by Automated count 10/19/2023 09:50:45 88.8 81.0-96.0 (fL) Final MCH [Entitic mass] by Automated count 10/19/2023 09:50:45 29.9 28.0-33.0 (pg) Final MCHC [Mass/volume] by Automated count 10/19/2023 09:50:45 33.7 32.0-36.0 (g/dL) Final Erythrocyte distribution width [Ratio] by Automated count 10/19/2023 09:50:45 14.3 Above high normal 11.5-14.2 (%) Final Erythrocyte distribution width [Entitic volume] by Automated count 10/19/2023 09:50:45 46 Final Platelets [#/volume] in Blood by Automated count 10/19/2023 09:50:45 218 150-350 (K/uL) Final Platelet mean volume [Entitic volume] in Blood by Automated count 10/19/2023 09:50:45 9.5 9.0-12.2 (fL) Final Nucleated erythrocytes/100 cells in Bone marrow by Manual count 10/19/2023 09:50:45 0 (/100 WBCs) Final Nucleated erythrocytes [#/volume] in Blood by Manual count 10/19/2023 09:50:45 0.00 (K/uL) Final Performing Location [facility] [employer] [facility] [address] [address]
--- OUTSIDE RECORDS SUMMARY | 2023-10-29 22:09 | External Medical Summary ---
Author Name Unknown Address Unknown Organization [facility] [employer] Chemistry:[facility] [employer] Chemistry [address] [place] [address] Laboratory Report Ordering Provider Test Date Status Ellis Norton 10/19/2023 08:38:00 Final Observation Date Value Abnormality Reference (Units ) Status Glucose [Mass/volume] in Serum or Plasma 10/19/2023 10:07:42 243 Above high normal 74-109 (mg/dL) Final Urea nitrogen [Mass/volume] in Serum or Plasma 10/19/2023 10:07:42 10 6-23 (mg/dL) Final Creatinine [Mass/volume] in Serum or Plasma 10/19/2023 10:07:42 0.69 Below low normal 0.70-1.30 (mg/dL) Final GLOMERULAR FILTRATION RATE/1.73 SQ M.PREDICTED:ARVRAT:PT :SER/PLAS/BLD:QN:CREA TININE AND CYSTATIN C-BASED FORMULA (CKD-EPI 2020) 10/19/2023 10:07:44 >90 >=60 (mL/min/1.73 m2) Final Sodium [Moles/volume] in Serum or Plasma 10/19/2023 10:07:42 137 136-145 (mmol/L) Final Potassium [Moles/volume] in Serum or Plasma 10/19/2023 10:07:42 4.3 3.5-5.1 (mmol/L) Final Chloride [Moles/volume] in Serum or Plasma 10/19/2023 10:07:42 103 98-107 (mmol/L) Final Carbon dioxide, total [Moles/volume] in Serum or Plasma 10/19/2023 10:07:42 24 22-29 (mmol/L) Final Anion gap 3 in Serum or Plasma 10/19/2023 10:07:44 10 5-14 (mmol/L) Final Calcium [Mass/volume] in Serum or Plasma 10/19/2023 10:07:42 8.5 8.4-10.2 (mg/dL) Final Performing Location [facility] [employer] Environmental Engineering Professor ry [address] [address]
--- OUTSIDE RECORDS SUMMARY | 2023-10-29 22:09 | External Medical Summary ---
Author Name Unknown Address Unknown Organization [facility] [employer] Chemistry:[facility] [employer] Chemistry [address] [place] [address] Laboratory Report Ordering Provider Test Date Status Yung Watson 10/18/2023 17:40:00 Final Observation Date Value Abnormality Reference (Units ) Status Ethanol [Mass/volume] in Serum or Plasma 10/18/2023 18:14:29 255.0 Above high normal <=10.1 (mg/dL) Final Performing Location [facility] [employer] Wire Brush Operator ry [address] [place] [address]
--- OUTSIDE RECORDS SUMMARY | 2023-10-29 22:09 | External Medical Summary ---
Author Name Unknown Address Unknown Organization [facility] [employer] Hematology:[facility] [employer] Hematology [address] [place] [address] Laboratory Report Ordering Provider Test Date Status Ellis Norton 10/19/2023 08:38:00 Final Observation Date Value Abnormality Reference (Units ) Status Neutrophils/100 leukocytes in Blood by Automated count 10/19/2023 09:50:45 91.4 (%) Final Lymphocytes/100 leukocytes in Blood by Automated count 10/19/2023 09:50:45 7.2 (%) Final Monocytes/100 leukocytes in Blood by Automated count 10/19/2023 09:50:45 0.8 (%) Final Eosinophils/100 leukocytes in Blood by Automated count 10/19/2023 09:50:45 0.0 (%) Final Basophils/100 leukocytes in Blood by Automated count 10/19/2023 09:50:45 0.3 (%) Final Immature granulocytes/100 leukocytes in Blood 10/19/2023 09:50:45 0.3 (%) Final Neutrophils [#/volume] in Blood by Automated count 10/19/2023 09:50:45 6.97 2.00-7.70 (K/uL) Final Lymphocytes [#/volume] in Blood by Automated count 10/19/2023 09:50:45 0.55 Below low normal 1.00-3.40 (K/uL) Final Monocytes [#/volume] in Blood by Automated count 10/19/2023 09:50:45 0.06 0.00-1.00 (K/uL) Final Eosinophils [#/volume] in Blood by Automated count 10/19/2023 09:50:45 0.00 0.00-0.50 (K/uL) Final Basophils [#/volume] in Blood by Automated count 10/19/2023 09:50:45 0.02 0.00-0.10 (K/uL) Final Immature granulocytes [#/volume] in Blood by Automated count 10/19/2023 09:50:45 0.02 0.00-0.40 (K/uL) Final Performing Location [facility] [address] [address]
--- OUTSIDE RECORDS SUMMARY | 2023-10-29 22:09 | External Medical Summary ---
Author Name Unknown Address Unknown Organization [facility] [employer] Hematology:[facility] [employer] Hematology [address] [place] [address] Laboratory Report Ordering Provider Test Date Status Beulah Tabor 10/20/2023 06:31:00 Final Observation Date Value Abnormality Reference (Units ) Status Neutrophils/100 leukocytes in Blood by Automated count 10/20/2023 07:29:23 71.4 (%) Final Lymphocytes/100 leukocytes in Blood by Automated count 10/20/2023 07:29:23 19.8 (%) Final Monocytes/100 leukocytes in Blood by Automated count 10/20/2023 07:29:23 8.0 (%) Final Eosinophils/100 leukocytes in Blood by Automated count 10/20/2023 07:29:23 0.1 (%) Final Basophils/100 leukocytes in Blood by Automated count 10/20/2023 07:29:23 0.3 (%) Final Immature granulocytes/100 leukocytes in Blood 10/20/2023 07:29:23 0.4 (%) Final Neutrophils [#/volume] in Blood by Automated count 10/20/2023 07:29:23 10.06 Above high normal 2.00-7.70 (K/uL) Final Lymphocytes [#/volume] in Blood by Automated count 10/20/2023 07:29:23 2.79 1.00-3.40 (K/uL) Final Monocytes [#/volume] in Blood by Automated count 10/20/2023 07:29:23 1.12 Above high normal 0.00-1.00 (K/uL) Final Eosinophils [#/volume] in Blood by Automated count 10/20/2023 07:29:23 0.01 0.00-0.50 (K/uL) Final Basophils [#/volume] in Blood by Automated count 10/20/2023 07:29:23 0.04 0.00-0.10 (K/uL) Final Immature granulocytes [#/volume] in Blood by Automated count 10/20/2023 07:29:23 0.06 0.00-0.40 (K/uL) Final Performing Location [facility] [address] [address]
--- OUTSIDE RECORDS SUMMARY | 2023-10-29 22:09 | External Medical Summary ---
Author Name Unknown Address Unknown Organization [facility] [employer] Chemistry:[facility] [employer] [facility] [address] [place] [address] Laboratory Report Ordering Provider Test Date Status Nav Taborhanny 10/19/2023 08:38:00 Final Observation Date Value Abnormality Reference (Units ) Status C reactive protein [Mass/volume] in Serum or Plasma 10/19/2023 11:21:13 <0.30 <=0.49 (mg/dL) Final Performing Location [facility] [employer] Invoice Checker ry [address] [place] [address]
--- OUTSIDE RECORDS SUMMARY | 2023-10-29 22:09 | External Medical Summary ---
Author Name Unknown Address Unknown Organization [facility] [employer] Chemistry:[facility] [employer] Chemistry [address] [place] [address] Laboratory Report Ordering Provider Test Date Status Ellis Norton 10/19/2023 08:38:00 Final Observation Date Value Abnormality Reference (Units ) Status Magnesium [Mass/volume] in Serum or Plasma 10/19/2023 10:07:42 1.8 1.6-2.6 (mg/dL) Final Performing Location [facility] [employer] Mortgage Assistant ry [address] [place] [address]
--- OUTSIDE RECORDS SUMMARY | 2023-10-29 22:09 | External Medical Summary ---
Author Name Unknown Address Unknown Organization [facility] [employer] Chemistry:[facility] [employer] Chemistry [address] [place] [address] Laboratory Report Ordering Provider Test Date Status Ellis Norton 10/20/2023 06:31:00 Final Observation Date Value Abnormality Reference (Units ) Status Phosphate [Mass/volume] in Serum or Plasma 10/20/2023 07:30:20 3.2 2.5-4.5 (mg/dL) Final Performing Location [facility] [employer] Electrode Cleaning Machine Operator ry [address] [place] [address]
--- OUTSIDE RECORDS SUMMARY | 2023-10-29 22:09 | External Medical Summary ---
Author Name Unknown Address Unknown Organization [facility] [employer] [facility]:[facility] [employer] [address] [place] [address] [place] [address] Laboratory Report Ordering Provider Test Date Status SYSTEM,SYSTEM 10/19/2023 09:23:00 Final Save if Positive Submitted d ue to upgrade to ICU Observation Date Value Abnormality Reference (Units) Status Methicillin resistant Staphylococcus aureus (MRSA) DNA [Presence] in Specimen by JHONNY with probe detection 10/19/2023 11:15:34 Not Detected^Not Detected Not Detected Final Performing Location [facility] [employer] [address] [place] [address] [place] [address]
--- OUTSIDE RECORDS SUMMARY | 2023-10-29 22:09 | External Medical Summary ---
Author Name Unknown Address Unknown Organization [facility] [employer] [facility] [employer] [address] [place] [address] Laboratory Report Ordering Provider Test Date Status Kellen Tamez 10/19/2023 02:26:00 Final Observation Date Value Abnormality Reference (Units ) Status Specimen source identified 10/19/2023 03:26:48 Nasopharyngeal^N asopharyngeal Final Whether this is the patient's first test for condition of interest 10/19/2023 03:26:48 Not Given^Not Given Final Whether the patient has symptoms related to condition of interest 10/19/2023 03:26:48 Yes^Yes Final Whether patient is employed in a healthcare setting 10/19/2023 03:26:48 Not Given^Not Given Final Whether patient resides in a congregate care setting 10/19/2023 03:26:48 Not Given^Not Given Final Whether the patient was hospitalized for condition of interest 10/19/2023 03:26:48 Not Given^Not Given Final Whether the patient was admitted to intensive care unit (ICU) for condition of interest 10/19/2023 03:26:48 No^No Final Are you currently [PhenX] 10/19/2023 03:26:48 Not Given^Not Given Final Race 10/19/2023 03:26:48 Not Given^Not Given Final Race or ethnicity 10/19/2023 03:26:48 Not Given^Not Given Final SARS-CoV-2 (COVID-19) RNA [Presence] in Nasopharynx by JHONNY with probe detection 10/19/2023 03:26:48 Not Detected^Not Detected Not Detected Final This assay has been granted an Emergency Use Authorization (EUA) by the U.S. Food and drug Administration. The performance of the assay (Corengi) has been verified by the [facility] Virology laboratory. Reported to [place] Department of Health Influenza virus A RNA [Presence] in Upper respiratory specimen by JHONNY with probe detection 10/19/2023 03:26:48 Negative^Negative Negative Final No Influenza A Detected. A n egative result does not rule out the possibility of influenza infection as the sensitivity of this test is approximately 98%. Patients being admitted to [facility] should have the RVP assay ordered. Haemophilus influenzae B DNA [Presence] in Specimen by JHONNY with probe detection 10/19/2023 03:26:48 Negative^Negative Negative Final Respiratory syncytial virus RNA [Presence] in Respiratory specimen by JHONNY with probe detection 10/19/2023 03:26:48 Negative^Negative Negative Fin al Performing Location [facility] [employer] [address] [place] [address]
--- OUTSIDE RECORDS SUMMARY | 2023-10-29 22:09 | External Medical Summary ---
Author Name Unknown Address Unknown Organization [facility] [employer] Hematology:[facility] [employer] Hematology [address] [place] [address] Laboratory Report Ordering Provider Test Date Status Yung Watson 10/18/2023 17:40:00 Final Observation Date Value Abnormality Reference (Units ) Status Leukocytes [#/volume] in Blood by Automated count 10/18/2023 17:56:22 8.63 4.00-10.40 (K/uL) Final Erythrocytes [#/volume] in Blood by Automated count 10/18/2023 17:56:22 5.34 4.40-5.60 (M/uL) Final Hemoglobin [Mass/volume] in Blood 10/18/2023 17:56:22 15.9 13.0-17.0 (g/dL) Final Hematocrit [Volume Fraction] of Blood by Automated count 10/18/2023 17:56:22 47.5 Above high normal 35.0-44.0 (%) Final MCV [Entitic volume] by Automated count 10/18/2023 17:56:22 89.0 81.0-96.0 (fL) Final MCH [Entitic mass] by Automated count 10/18/2023 17:56:22 29.8 28.0-33.0 (pg) Final MCHC [Mass/volume] by Automated count 10/18/2023 17:56:22 33.5 32.0-36.0 (g/dL) Final Erythrocyte distribution width [Ratio] by Automated count 10/18/2023 17:56:22 14.2 11.5-14.2 (%) Final Erythrocyte distribution width [Entitic volume] by Automated count 10/18/2023 17:56:22 46 Final Platelets [#/volume] in Blood by Automated count 10/18/2023 17:56:22 283 150-350 (K/uL) Final Platelet mean volume [Entitic volume] in Blood by Automated count 10/18/2023 17:56:22 9.1 9.0-12.2 (fL) Final Nucleated erythrocytes/100 cells in Bone marrow by Manual count 10/18/2023 17:56:22 0 (/100 WBCs) Final Nucleated erythrocytes [#/volume] in Blood by Manual count 10/18/2023 17:56:22 0.00 (K/uL) Final Performing Location [facility] [address] [address]
--- OUTSIDE RECORDS SUMMARY | 2023-10-29 22:09 | External Medical Summary ---
Author Name Unknown Address Unknown Organization [facility] [employer] Hematology:[facility] [employer] Hematology [address] [place] [address] Laboratory Report Ordering Provider Test Date Status Beulah Tabor 10/20/2023 06:31:00 Final Observation Date Value Abnormality Reference (Units ) Status Leukocytes [#/volume] in Blood by Automated count 10/20/2023 07:29:23 14.08 Above high normal 4.00-10.40 (K/uL) Final Erythrocytes [#/volume] in Blood by Automated count 10/20/2023 07:29:23 4.88 4.40-5.60 (M/uL) Final Hemoglobin [Mass/volume] in Blood 10/20/2023 07:29:23 14.5 13.0-17.0 (g/dL) Final Hematocrit [Volume Fraction] of Blood by Automated count 10/20/2023 07:29:23 43.9 35.0-44.0 (%) Final MCV [Entitic volume] by Automated count 10/20/2023 07:29:23 90.0 81.0-96.0 (fL) Final MCH [Entitic mass] by Automated count 10/20/2023 07:29:23 29.7 28.0-33.0 (pg) Final MCHC [Mass/volume] by Automated count 10/20/2023 07:29:23 33.0 32.0-36.0 (g/dL) Final Erythrocyte distribution width [Ratio] by Automated count 10/20/2023 07:29:23 14.2 11.5-14.2 (%) Final Erythrocyte distribution width [Entitic volume] by Automated count 10/20/2023 07:29:23 47 Final Platelets [#/volume] in Blood by Automated count 10/20/2023 07:29:23 251 150-350 (K/uL) Final Platelet mean volume [Entitic volume] in Blood by Automated count 10/20/2023 07:29:23 9.7 9.0-12.2 (fL) Final Nucleated erythrocytes/100 cells in Bone marrow by Manual count 10/20/2023 07:29:23 0 (/100 WBCs) Final Nucleated erythrocytes [#/volume] in Blood by Manual count 10/20/2023 07:29:23 0.00 (K/uL) Final Performing Location [facility] [address] [address]
--- OUTSIDE RECORDS SUMMARY | 2023-10-29 22:09 | External Medical Summary ---
Author Name Unknown Address Unknown Organization [facility] Manual Hematolog y Subsection:[facility] Manual Hematology Subsection [address] [place] [address] Laboratory Report Ordering Provider Test Date Status Beulah Tabor 10/19/2023 08:38:00 Final Observation Date Value Abnormality Reference (Units ) Status Erythrocyte sedimentation rate by Photometric method 10/19/2023 11:52:41 8 <=20 (mm/hr) Final Performing Location [facility] Manual Hematology Subsec tion [address] [place] [address] NANCY [address]
--- OUTSIDE RECORDS SUMMARY | 2023-10-29 22:09 | External Medical Summary ---
Author Name Unknown Address Unknown Organization [facility] [employer] Chemistry:[facility] [employer] [facility] [address] [place] [address] Laboratory Report Ordering Provider Test Date Status Ellis Norton 10/18/2023 23:04:00 Final Observation Date Value Abnormality Reference (Units ) Status Amylase [Enzymatic activity/volume] in Serum or Plasma 10/19/2023 03:53:45 93 28-110 (unit/L) Final Performing Location [facility] [employer] Ruching Machine Operator ry [address] [place] [address]
--- OUTSIDE RECORDS SUMMARY | 2023-10-29 22:09 | External Medical Summary ---
Author Name Unknown Address Unknown Organization [facility] Chemistry:[facility] Chemistry [address] [place] [address] Laboratory Report Ordering Provider Test Date Status Ellis Norton 10/20/2023 06:31:00 Final Observation Date Value Abnormality Reference (Units ) Status Protein [Mass/volume] in Serum or Plasma 10/20/2023 07:30:21 5.7 Below low normal 6.4-8.3 (g/dL) Final Albumin [Mass/volume] in Serum or Plasma by Bromocresol green (BCG) dye binding method 10/20/2023 07:30:21 3.7 3.5-5.2 (g/dL) Final Bilirubin.total [Mass/volume] in Serum or Plasma 10/20/2023 07:30:21 0.3 0.0-1.2 (mg/dL) Final Bilirubin.direct [Mass/volume] in Serum or Plasma 10/20/2023 07:30:20 <0.2 <=0.3 (mg/dL) Final Aspartate aminotransferase [Enzymatic activity/volume] in Serum or Plasma 10/20/2023 07:30:21 13 0-40 (unit/L) Final Alanine aminotransferase [Enzymatic activity/volume] in Serum or Plasma 10/20/2023 07:30:21 10 0-41 (unit/L) Final Alkaline phosphatase [Enzymatic activity/volume] in Serum or Plasma 10/20/2023 07:30:21 48 40-130 (unit/L) Final Performing Location [facility] Emergency Services Dispatcher ry [address] [place] [address]
[2023-10-30 06:54] LABS: Hemoglobin 14.5 g/dl (14.0-18.0); Mean Corpuscular Hemoglobin 29.9 pg (25.0-34.0); Mean Corpuscular Hgb Conc 33.7 g/dL (32.0-36.0); Mean Corpuscular Volume 88.7 fL (80.0-100.0); Mean Platelet Volume 9.6 fL (9.4-12.4); Platelet Count 190 K/uL (130-400); RDW Coefficient of Variation 14.4 % (11.5-14.5); RDW Standard Deviation 46.5 fL (36.4-46.3); Red Blood Count 4.85 M/uL (4.70-6.10); White Blood Count 8.36 K/ul (4.8-10.8)
[2023-10-30 07:07] LABS: BUN Creatinine Ratio 23.2 (10-20); Calcium 8.6 mg/dl (8.6-10.3); Chol HDL Ratio 3.7 (0-5); Creatinine Clr Calc Pharmacy 112.9 ml/min; Est GFR (African American) 121.3 ml/min; Est GFR (Non-African American) 104.6 ml/min; Magnesium 2.1 mg/dl (1.7-2.4); Phosphorus 3.3 mg/dl (2.5-4.9)
[2023-10-30] MEDS: FOLIC ACID 400 MCG TAB PO SCH (08:53)
[2023-10-30] MEDS: GABAPENTIN 600 MG TAB PO SCH (08:53)
[2023-10-30] MEDS: THIAMINE HCL 100 MG TAB PO SCH (08:54)
[2023-10-30] MEDS: ACETAMINOPHEN 325 MG TAB PO PRN (10:15)
[2023-10-30] MEDS: LORazepam 0.5 MG in SYRINGE 0.25 ML IV STA (10:15)
--- NOTE | 2023-10-30 11:37 | Psychiatric Progress Note ---
Date of Service October 30, 2023 Impression / Recommendations Impression This is a 57 yo man with chronic SI, COPD, and history of prior suicide attempts and psychiatric hospitalizations admitted medically following suicide rehearsal behaviors with ongoing oxygen requirement and alcohol use. Diagnostically consistent with alcohol use disorder as well as unspecified depression and anxiety likely a combination of substance-induced as well as MDD vs BPAD vs schizophrenia (though less likely given no evidence of overt thought blocking or being internally preoccupied, behaviorally organized) and PHOEBE. Acute risk of self-harm remains elevated and high given suicide rehearsal behaviors, ongoing SI, command AH, alcohol use, history of prior attempts, lack of outpatient providers. Given elevated risk of harm to self he meets criteria for dual diagnosis inpatient psychiatric care for diagnostic clarification, safety/stabilization, development of additional coping skills, medication management and disposition/safety planning once medically stable. He reports a history of worsening psychiatric symptoms during periods of alcohol withdrawal so it is possible that his symptoms may improve with withdrawal management and if so he may be able to attend residential substance use treatment, his goal, if his mood, SI and command AH improve. 10/30/2023: Ongoing depression and anxiety but no SI today, feels safe in the hospital and feels he can let nurses know if he re-develops SI, has command AH or feels unable to remain safe. He is interested in dual diagnosis inpatient programs as he feels his alcohol use is a significant component of his mood and psychosis symptoms. Had bad experience at [facility] in the past but open to other options. Informed by medical providers that he is now medically stable so will begin inpatient psychiatry bed search starting with Jed's preference for dual diagnosis units. He consents to increasing the Seroquel to further target his auditory hallucinations and depression. Overall, I spent a total of 40 minutes with this case including review of chart records, review of labwork, direct evaluation of the patient at bedside, counseling the patient, discussion of the patient with the hospitalist provider, discussion with the psychiatric liason during clinical rounds and documentation in the electronic health record. (1) Depression with suicidal ideation: (2) COPD (chronic obstructive pulmonary disease): (3) Alcohol use disorder: (4) Auditory hallucinations: (5) Anxiety: Plan -Continue suicide precautions; can discontinue 1-on-1 and safe tray -He is voluntary for dual diagnosis inpatient psychiatric treatment, psych liason to begin bed search -Increase Seroquel to 300mg HS -He is now medically stable, will begin process of dual diagnosis inpatient referrals -Continue AWSS as well as thiamine and folic acid -Consider starting naltrexone 50mg qd for alcohol use disorder once outside period of acute withdrawal Protective Factors Assessment Employed: Yes Interval History Identifying Information 57 yo man with psychiatric history of BPAD vs schizophrenia vs major depression, anxiety with panic attacks and alcohol use disorder as well as COPD requiring oxygen admitted medically for hypoxia and SI with plan and rehearsal behaviors. Psychiatry consulted for risk assessment. Chief Complaint "Having lots of thoughts today about how I move forward". Subjective Subjective Patient was seen & assessed and interval progress reviewed. Not requiring oxygen today. Reports his mood is becoming more future-focused, thinking about "starting over" by seeking treatment for alcohol use and eventually moving back to [place], maybe in 2024. He denies SI today, reports last had these thoughts last night. No command AH today, still hearing voices mumbling but better able to distract from these. He notes that his voices are always worsen during periods of alcohol withdrawal. He feels safe in the hospital and that he could let nurses know if he re-developed SI or if the voices told him to hurt himself or became mean or angry. He feels safe without a 1-on-1. Slept "off and on" last night. No side effects from the Seroquel, he's interested in trying a slightly higher dose to help further with sleep and lessening the auditory hallucinations. Reports feeling a little anxious due to next steps in moving forward with his life. Is glad to be alive. Most interested in dual diagnosis inpatient psychiatric treatment, also asks for phone number for a [facility] program he knows about for substance use as a future option after inpatient treatment. Physical Exam Psychiatric Orientation: alert, oriented to person and oriented to place Apperance: appropriately dressed and appropriately groomed Eye Contact: good eye contact Motor Behavior: no abnormal motor movements Speech: normal rate/rhythm/volume of speech Affect: + depressed affect and + anxious affect Mood: + depressed mood and + anxious mood Thought Process: goal directed thought process Thought Content: reality based without delusions Suicidal Thoughts: denies suicidal plan and denies suicidal intent; + reports suicidal thoughts (chronic intermittent, none so far today) Homicidal Thoughts: denies homicidal thoughts Hallucinations: + auditory hallucinations (no command today, mumbling); no visual hallucinations Cognition: recent memory grossly intact, remote memory grossly intact, attention grossly intact and language grossly intact Insight: + fair insight Judgment: + limited judgement Vital Signs (Past 24 Hours) Last Vital Signs Temp 36.6 C 10/30/23 07:26 Pulse 86 10/30/23 11:15 Resp 16 10/30/23 11:15 BP 109/71 10/30/23 07:26 Pulse Ox 95 10/30/23 11:15 O2 Del Method Room Air 10/30/23 11:15 O2 Flow Rate 2 10/30/23 07:26 Results & Data ([facility]) Laboratory Results Laboratory Results - last 24 hr 10/29/23 10/30/23 11:24 06:08 WBC 10.25 8.36 RBC 5.38 4.85 Hgb 16.1 14.5 Hct 47.2 43.0 MCV 87.7 88.7 MCH 29.9 29.9 MCHC 34.1 33.7 RDW Std Deviation 46.8 H 46.5 H RDW Coeff of De 14.6 H 14.4 Plt Count 220 190 MPV 9.6 9.6 Immature Gran % (Auto) 0.7 Neut % (Auto) 62.0 Lymph % (Auto) 24.3 [place] % (Auto) 9.5 Eos % (Auto) 3.0 Baso % (Auto) 0.5 Neut # (Auto) 6.36 Lymph # (Auto) 2.49 [place] # (Auto) 0.97 H Eos # (Auto) 0.31 Baso # (Auto) 0.05 Immature Gran # (Auto) 0.07 Sodium 137 138 Potassium 4.3 4.0 Chloride 105 107 Carbon Dioxide 28 26 Anion Gap 4 5 BUN 17 16 Creatinine 0.84 0.69 Est Cr Clr Drug Dosing 92.7 112.9 Est GFR ( Amer) 111.9 121.3 Est GFR (Non-Af Amer) 96.5 104.6 BUN/Creatinine Ratio 20.2 H 23.2 H Glucose 89 116 H Calcium 9.1 8.6 Phosphorus 3.3 Magnesium 2.1 Triglycerides 182 H Cholesterol 219 H LDL Cholesterol, Calc 124 VLDL Cholesterol, Calc 36 H HDL Cholesterol 59 Cholesterol/HDL Ratio 3.7 Current Inpatient Medications Current Inpatient Medications: Current Inpatient Medications Acetaminophen (Acetaminophen 325 Mg Tab) 650 mg PO Q4H PRN PRN Reason: pain/fever Stop: 11/29/23 09:46 Last Admin: 10/30/23 10:15 Dose: 650 mg Albuterol (Albut/Ipratrop 3mg/0.5mg Neb 3 Ml Vial) 3 ml NEB QIDR ON [facility] OF [facility]; Protocol Stop: 11/28/23 14:59 Last Admin: 10/30/23 11:15 Dose: 3 ml Budesonide (Budesonide 0.5 Mg/2 Ml Vial (Pulmicort)) 0.5 mg NEB BIDR ON [facility] Stop: 11/28/23 18:59 Last Admin: 10/30/23 07:36 Dose: 0.5 mg Ciprofloxacin/Dexamethasone (Cipro 0.3%/Dexamethasone 0.1% Otic Susp 7.5ml) 4 drops OT BID ON [facility] Stop: 11/06/23 10:14 Folic Acid (Folic Acid 400 Mcg Tab) 400 mcg PO QAM ON LICENSE OF [facility] Stop: 11/29/23 08:59 Last Admin: 10/30/23 08:53 Dose: 400 mcg Formoterol Fumarate (Formoterol 20 Mcg/2 Ml Vial) 20 mcg NEB BIDR ON [facility] Stop: 11/28/23 18:59 Last Admin: 10/30/23 07:36 Dose: 20 mcg Gabapentin (Gabapentin 600 Mg Tab) 600 mg PO Q8H ON LICENSE OF [facility] Stop: 10/31/23 00:01 Last Admin: 10/30/23 08:53 Dose: 600 mg Gabapentin (Gabapentin 600 Mg Tab) 600 mg PO Q12H ON [facility] Stop: 11/01/23 00:01 Gabapentin (Gabapentin 600 Mg Tab) 600 mg PO Q24H ON [facility] Stop: 11/02/23 00:01 Lorazepam 1 mg/ Syringe 1 mls @ 2 mls/min IV ONE PRN; Protocol PRN Reason: EtoH Withdrawal AWSS 6-10 Miscellaneous (Remove Nicoderm Patch) 1 each N/A DAILY@0859 ON [facility] Stop: 11/28/23 11:58 Last Admin: 10/30/23 09:00 Dose: 1 each Nicotine (Nicotine 21 Mg/24 Hr Tdsy) 1 patch TD QAM ON [facility] OF [facility] Stop: 11/28/23 11:59 Last Admin: 10/30/23 08:53 Dose: 1 patch Quetiapine Fumarate (Quetiapine Fumarate 100 Mg Tablet) 150 mg PO HS ON [facility] Stop: 11/28/23 20:59 Last Admin: 10/29/23 20:43 Dose: 150 mg Simvastatin (Simvastatin 10 Mg Tab) 10 mg PO PM [facility] Stop: 11/29/23 20:59 Thiamine HCl (Thiamine Hcl 100 Mg Tab) 100 mg PO QAM [facility] Stop: 11/29/23 08:59 Last Admin: 10/30/23 08:54 Dose: 100 mg Mental Health & Subst Abuse Tx Therapist Name of Therapist: None Esthetician Permanent Makeup Artist Name of Esthetician Permanent Makeup Artist: None Post Discharge Appointments Primary Care Physician Name Of Family Doctor/PCP: None (2) COPD (chronic obstructive pulmonary disease) COPD type: unspecified COPD Qualified Code(s): J44.9 - Chronic obstructive pulmonary disease, unspecified
[2023-10-30] MEDS: PNEUMOCOCCAL VACCINE (PCV20) 20-VAL CONJ-DIP CRM/PF 0.5 ML SYR IM ONE (12:51)
[2023-10-30] MEDS: CIPRO 0.3%/DEXAMETHASONE 0.1% OTIC SUSP 7.5ML OT SCH (12:51)
--- NOTE | 2023-10-30 14:10 | Hospitalist Progress Note ---
Date of Service October 30, 2023 Assessment & Plan (1) Depression with suicidal ideation: (2) COPD (chronic obstructive pulmonary disease): Plan: Suicidal Ideation Severe Depression Bipolar Disorder Anxiety - Admit to med surg - Pt currently denies suicidal ideations, he wishes to pursue treatment for his alcohol use disorder and psych diagnoses - will d/c 1:[address] on q15min checks, lift safe tray precautions - Psych consulted - UDS positive for benzo. Negative for other illicit drug use, pt denies illicit drug use. - Psych on board and plan is for dual treatment at facility, discussed with Dr. Crane that from medical standpoint we are ok to pursue facility - He currently is medically stable w/o signs or symptoms of withdrawal Alcohol Use with intoxication - lab abnormalities resolved - heavily drinks alcohol, between #6-12 , 16oz cans per day. His last drink was at home yesterday. - received Banana bag in ED, Folic acid and thiamine - Seizure precautions - AWSS protocol with gabapentin taper, prn IV ativan - Will consider starting Naltrexone 50mg qd tomorrow after out of withdrawal window Hypoxia in ED - now resolved Noncompliance with CPAP ? - Covid/flu/rsv negative - CXR is negative for acute findings - Will order duonebs scd Q4H and Q2H prn, performist, budesonide to maximize breathing efforts - Cough chronic, unchanged. If anything new can consider CT of the chest - suspect pt may have underlying COPD given tobacco abuse, will need PFTS as outpt - will not pursue oral steroids due to psych history -Will transition to Breo and prn albuterol at discharge HLD pt reports hx of such and previously on medication for this lipid panel reviewed and independently interpreted total chol 219, trig 182, LDL 124 will start simvastatin as this is on [employer] 4$ list DVT ppx: teds, scds Lines: none due to SI FEN/GI: Allow regular diet CODE: FULL Dispo: From home, Pt medically stable to begin bedsearch for dual treatment fac [facility] Pt was seen and examined in collaboration with Dr. Ryan, please see addendum A total of 56 minutes was spent coordinating, documenting, and providing care for this patient excluding time spent in the performance of separately billed services. This included personally viewing all current laboratories and imaging studies, medication reconciliation, outpatient chart review, and discussion with specialists. Admission and Anticipated Discharge Date Admission Date: October 29, 2023 Supervising Physician Co-Signing Physician Notes 57-year-old male with PMH of brain aneurysm, mood disorder, bipolar, anxiety/depression, possible schizoaffective disorder presented to the ED 10/28 with suicidal ideation. He was seen and examined at bedside. Patient denies any further suicidal ideation today. He is also being managed for alcohol use with intoxication. Undergoing [facility] protocol. Discussed with psychiatry, plan to discharge him to dual treatment facility. Patient medically stable for drug treatment facility. I have reviewed the advanced practitioner's documentation, and I agree with, and take responsibility for the plan of care I spent a total of __20___ minutes coordinating, documenting, and providing care for this patient excluding time spent in the performance of separately billed services. All of the aforementioned completed while collaborating with the assigned advanced practitioner for a full treatment plan Subjective Patient was seen and examined in 318. Follow-up suicidal ideation. Patient was seen with RN at bedside due to one-to-one status. He currently denies any suicidal ideation. He does complain of some right ear pain and fullness. He states prior to admission he was placed on eardrops and only had been on these for approximately 4 days. He was questioning the results of his cholesterol panel. He denies any significant symptoms of withdrawal, but does complain of a headache and some increased anxiety. Per RN at bedside he has not required any as needed Ativan doses. He currently denies fever, chills, sweats, chest pain, shortness of breath, nausea, vomiting, abdominal pain. His appetite has been good. He wants to pursue treatment for his alcohol use disorder. Review of Systems Review of Systems: All systems reviewed & are unremarkable except as noted in HPI & below Physical Exam Physical Exam: Gen: WD/WN, NAD, A&O x3 HEENT: Normocephalic, atraumatic, conjunctivae moist, sclerae anicteric, mucous membranes moist. poor dentition. EAC: R canal edematous anteriorly, TM visualized and normal, no cerumen Lung: Clear to Auscultation bilaterally, with bilateral wheezes no rales/rhonchi Heart: Regular rate, regular rhythm, no murmurs, rubs, or gallops Abdomen: Soft, NT, ND +BS x 4 Extremities: No edema Skin: Warm, no rash, negative turgor. Results & Data Results & Data Vital Signs (Past 12 Hours) Vital Signs Temp Pulse Resp BP Pulse Ox O2 Del Method O2 Flow Rate 10/30/23 11:15 86 16 95 Room Air 10/30/23 08:50 Room Air 10/30/23 07:37 78 18 93 Room Air 10/30/23 07:26 36.6 C 73 18 109/71 97 Nasal Cannula 2 10/30/23 03:05 36.5 C 87 16 122/77 97 Nasal Cannula 2 Laboratory Results Short CBC 10/30/23 Range/Units 06:08 WBC 8.36 (4.8-10.8) K/ul Hgb 14.5 (14.0-18.0) g/dl Hct 43.0 (42.0-52.0) % Plt Count 190 (130-400) K/uL BMP 10/30/23 06:08 Sodium 138 Potassium 4.0 Chloride 107 Carbon Dioxide 26 BUN 16 Creatinine 0.69 Glucose 116 H Calcium 8.6 I have independently reviewed and interpreted patient's a.m. labs including CBC, BMP, Mag, Lipid panel Medications Administered Current Inpatient Medications Acetaminophen (Acetaminophen 325 Mg Tab) 650 mg PO Q4H PRN PRN Reason: pain/fever Stop: 11/29/23 09:46 Last Admin: 10/30/23 10:15 Dose: 650 mg Albuterol (Albut/Ipratrop 3mg/0.5mg Neb 3 Ml Vial) 3 ml NEB QIDR [facility]; Protocol Stop: 11/28/23 14:59 Last Admin: 10/30/23 13:56 Dose: 3 ml Budesonide (Budesonide 0.5 Mg/2 Ml Vial (Pulmicort)) 0.5 mg NEB BIDR [facility] Stop: 11/28/23 18:59 Last Admin: 10/30/23 07:36 Dose: 0.5 mg Ciprofloxacin/Dexamethasone (Cipro 0.3%/Dexamethasone 0.1% Otic Susp 7.5ml) 4 drops OT BID [facility] Stop: 11/06/23 10:14 Last Admin: 10/30/23 12:51 Dose: 4 drops Folic Acid (Folic Acid 400 Mcg Tab) 400 mcg PO QAM [facility] Stop: 11/29/23 08:59 Last Admin: 10/30/23 08:53 Dose: 400 mcg Formoterol Fumarate (Formoterol 20 Mcg/2 Ml Vial) 20 mcg NEB BIDR [facility] Stop: 11/28/23 18:59 Last Admin: 10/30/23 07:36 Dose: 20 mcg Gabapentin (Gabapentin 600 Mg Tab) 600 mg PO Q8H [facility] Stop: 10/31/23 00:01 Last Admin: 10/30/23 08:53 Dose: 600 mg Gabapentin (Gabapentin 600 Mg Tab) 600 mg PO Q12H [facility] Stop: 11/01/23 00:01 Gabapentin (Gabapentin 600 Mg Tab) 600 mg PO Q24H [facility] Stop: 11/02/23 00:01 Lorazepam 1 mg/ Syringe 1 mls @ 2 mls/min IV ONE PRN; Protocol PRN Reason: EtoH Withdrawal AWSS 6-10 Miscellaneous (Remove Nicoderm Patch) 1 each N/A DAILY@0859 [facility] Stop: 11/28/23 11:58 Last Admin: 10/30/23 09:00 Dose: 1 each Nicotine (Nicotine 21 Mg/24 Hr Tdsy) 1 patch TD QAM [facility] Stop: 11/28/23 11:59 Last Admin: 10/30/23 08:53 Dose: 1 patch Quetiapine Fumarate (Quetiapine Fumarate 300 Mg Tablet) 300 mg PO HS [facility] Stop: 11/29/23 20:59 Simvastatin (Simvastatin 10 Mg Tab) 10 mg PO PM [facility] Stop: 11/29/23 20:59 Thiamine HCl (Thiamine Hcl 100 Mg Tab) 100 mg PO QAM [facility] Stop: 11/29/23 08:59 Last Admin: 10/30/23 08:54 Dose: 100 mg (2) COPD (chronic obstructive pulmonary disease) COPD type: unspecified COPD Qualified Code(s): J44.9 - Chronic obstructive pulmonary disease, unspecified
[2023-10-30 21:27] LABS: 7-Aminoclonaz, Confirm NEGATIVE ng/mL (<25); Hydro-Alp Ur, GC/MS NEGATIVE ng/mL (<25); Hydroxyethylflurazepam, Conf NEGATIVE ng/mL (<50); Hydroxymidazolam Ur, GC/MS NEGATIVE ng/mL (<50); Hydroxytriazolam NEGATIVE ng/mL (<50); Lorazepam, Ur GC/MS NEGATIVE ng/mL (<50); Nordiazepam, Confirm NEGATIVE ng/mL (<50); Oxazepam Ur, GC/MS 718 ng/mL (<50); Temazepam, Confirm NEGATIVE ng/mL (<50)
[2023-10-30] MEDS: SIMVASTATIN 10 MG TAB PO SCH (21:55)
[2023-10-30] MEDS: QUEtiapine FUMARATE 300 MG TABLET PO SCH (21:55)
[2023-10-31 07:20] LABS: Hematocrit (blood only) 43.4 % (42.0-52.0); Hemoglobin 14.3 g/dl (14.0-18.0); Mean Corpuscular Hemoglobin 29.5 pg (25.0-34.0); Mean Corpuscular Hgb Conc 32.9 g/dL (32.0-36.0); Mean Corpuscular Volume 89.7 fL (80.0-100.0); Mean Platelet Volume 9.9 fL (9.4-12.4); Platelet Count 190 K/uL (130-400); RDW Coefficient of Variation 14.5 % (11.5-14.5); RDW Standard Deviation 47.4 fL (36.4-46.3); Red Blood Count 4.84 M/uL (4.70-6.10); White Blood Count 7.49 K/ul (4.8-10.8)
[2023-10-31 07:24] VITALS: BP 106/69; TEMP 97.3
[2023-10-31 07:40] LABS: BUN Creatinine Ratio 19.7 (10-20); Calcium 8.8 mg/dl (8.6-10.3); Creatinine Clr Calc Pharmacy 109.7 ml/min; Est GFR (African American) 119.9 ml/min; Est GFR (Non-African American) 103.4 ml/min; Potassium 4.2 mmol/L (3.5-5.1)
[2023-10-31 08:40] LABS: Estimated Average Glucose 140 mg/dl; Hemoglobin A1C 6.5 % (4.5-5.6)
[2023-10-31] MEDS: GABAPENTIN 600 MG TAB PO SCH (11:46)
--- NOTE | 2023-10-31 13:46 | Psychiatric Progress Note ---
Date of Service October 31, 2023 Impression / Recommendations Impression This is a 57 yo man with chronic SI, COPD, and history of prior suicide attempts and psychiatric hospitalizations admitted medically following suicide rehearsal behaviors and alcohol withdrawal. Diagnostically consistent with alcohol use disorder as well as unspecified depression and anxiety likely a combination of substance-induced as well as MDD vs BPAD vs schizophrenia (though less likely given no evidence of overt thought blocking or being internally preoccupied, behaviorally organized) and PHOEBE. 10/30/2023: Mood continues to improve, he continues to deny SI and is future focused and motivated for substance use treatment. He spoke with the [facility] program and after review of his chart they have accepted him. He is looking forward to this and feels it will be very helpful. Remains very motivated to avoid future alcohol use and this program helped him do that in the past. Acute risk of harm is low given denial of SI, no longer intoxicated nor in acute withdrawal state, strong deterrents including his granddaughters, desire to avoid substance use, no access to guns, improved sleep, going to supportive environment for treatment and future-oriented. Chronic risk is moderate given past attempts, co-occurring diagnoses, history of inpatient treatment, history of impulsivity especially while using substances but also with protective factors including: good social support, sense of responsibility to family and social supports, positive coping skills,positive problem solving, capacity to establish therapeutic alliance, willingness to engage with treatment and capacity for self-observation. Counseled on ways to reduce acute and chronic risk including avoiding alcohol use, utilizing supports, utilizing crisis services, taking medication, and using coping skills. Modifiable risk factors of SI, auditory hallucinations, and alcohol withdrawal were addressed during hospitalization through medication adjustments, disposition planning, and substance use treatment. Overall, I spent a total of 45 minutes with this case including review of chart records, review of labwork, direct evaluation of the patient at bedside, counseling the patient, discussion of the patient with the hospitalist provider, discussion with the psychiatric liason during clinical rounds and documentation in the electronic health record. (1) Depression with suicidal ideation: (2) COPD (chronic obstructive pulmonary disease): (3) Alcohol use disorder: (4) Auditory hallucinations: (5) Anxiety: Plan -Can discontinue suicide precautions -Plan for discharge to residential substance use treatment program -Recommend he be provided with scripts for Seroquel 300mg HS and Vistaril 50mg daily prn for anxiety/insomnia on discharge -Consider use of naltrexone in the future -He is aware of emergency and crisis services. Knows to call 911 or go to nearest emergency care center if in a crisis which cannot be handled as an outpatient. Protective Factors Assessment Employed: Yes Interval History Identifying Information 57 yo man with psychiatric history of BPAD vs schizophrenia vs major depression, anxiety with panic attacks and alcohol use disorder as well as COPD requiring oxygen admitted medically for hypoxia and SI with plan and rehearsal behaviors. Psychiatry consulted for risk assessment. Chief Complaint "I'm ready for this, I'm too old to keep drinking like I've been doing, I've got my granddaughters to think about". Subjective Subjective Patient was seen & assessed and interval progress reviewed. Slept well with Seroquel, no side effects. Wonders about Vistaril for anxiety as he notes that anxiety is typically what drives him to drink alcohol, and he had a friend who told him Vistaril can be very helpful. We discussed risks/benefits of this, he'd be interested in having this available after discharge if anxiety/panic attacks occur. Denies any SI today nor recently. No auditory hallucinations. Feels very hopeful about getting alcohol use treatment. Future-focused on getting healthy again so he can live a long life, citing his family and granddaughters as significant motivation to do this and strong reasons for living. He would like to start the [facility] program and spoke with their intake provider on the phone, is hopeful he can start the program tonight. Physical Exam Psychiatric Orientation: alert, oriented to person and oriented to place Apperance: appropriately dressed and appropriately groomed Eye Contact: good eye contact Motor Behavior: no abnormal motor movements Speech: normal rate/rhythm/volume of speech Affect: euthymic affect Mood: no depressed mood and no anxious mood Thought Process: goal directed thought process Thought Content: reality based without delusions Suicidal Thoughts: denies suicidal thoughts, denies suicidal plan and denies suicidal intent Homicidal Thoughts: denies homicidal thoughts Hallucinations: no auditory hallucinations and no visual hallucinations Cognition: recent memory grossly intact, remote memory grossly intact, attention grossly intact and language grossly intact Insight: + fair insight Judgment: + fair judgement Vital Signs (Past 24 Hours) Last Vital Signs Temp 36.3 C L 10/31/23 07:23 Pulse 90 10/31/23 10:54 Resp 16 10/31/23 10:54 BP 106/69 10/31/23 07:23 Pulse Ox 94 10/31/23 10:54 O2 Del Method Room Air 10/31/23 10:54 O2 Flow Rate 2 10/30/23 07:26 Results & Data ([facility]) Laboratory Results Laboratory Results - last 24 hr 10/28/23 10/31/23 23:15 06:35 WBC 7.49 RBC 4.84 Hgb 14.3 Hct 43.4 MCV 89.7 MCH 29.5 MCHC 32.9 RDW Std Deviation 47.4 H RDW Coeff of De 14.5 Plt Count 190 MPV 9.9 Sodium 140 Potassium 4.2 Chloride 109 H Carbon Dioxide 26 Anion Gap 5 BUN 14 Creatinine 0.71 Est Cr Clr Drug Dosing 109.7 Est GFR ( Amer) 119.9 Est GFR (Non-Af Amer) 103.4 BUN/Creatinine Ratio 19.7 Glucose 105 H Estimat Average Glucose 140 Hemoglobin A1c 6.5 H Calcium 8.8 U OH-Alprazolam Confrm NEGATIVE 7-Amino Clonazepam NEGATIVE Ur Nordiazepam Confirm NEGATIVE U OH-ethylflurazepam NEGATIVE U Lorazepam Cnf GC/MS NEGATIVE U Oxazepam Confm GC/MS 718 H Ur Temazepam Confirm NEGATIVE U OH-Triazolam Confirm NEGATIVE U OH-Midazolam Confirm NEGATIVE Drug Screen Comment SEE NOTE Current Inpatient Medications Current Inpatient Medications: Current Inpatient Medications Acetaminophen (Acetaminophen 325 Mg Tab) 650 mg PO Q4H PRN PRN Reason: pain/fever Stop: 11/29/23 09:46 Last Admin: 10/30/23 21:55 Dose: 650 mg Albuterol (Albut/Ipratrop 3mg/0.5mg Neb 3 Ml Vial) 3 ml NEB QIDR LAVON; Protocol Stop: 11/28/23 14:59 Last Admin: 10/31/23 10:52 Dose: 3 ml Budesonide (Budesonide 0.5 Mg/2 Ml Vial (Pulmicort)) 0.5 mg NEB BIDR LAVON Stop: 11/28/23 18:59 Last Admin: 10/31/23 07:36 Dose: 0.5 mg Ciprofloxacin/Dexamethasone (Cipro 0.3%/Dexamethasone 0.1% Otic Susp 7.5ml) 4 drops OT BID LAVON Stop: 11/06/23 10:14 Last Admin: 10/31/23 08:04 Dose: 4 drops Folic Acid (Folic Acid 400 Mcg Tab) 400 mcg PO QAM [facility] Stop: 11/29/23 08:59 Last Admin: 10/31/23 08:04 Dose: 400 mcg Formoterol Fumarate (Formoterol 20 Mcg/2 Ml Vial) 20 mcg NEB BIDR [facility] Stop: 11/28/23 18:59 Last Admin: 10/31/23 07:36 Dose: 20 mcg Gabapentin (Gabapentin 600 Mg Tab) 600 mg PO Q12H [facility] Stop: 11/01/23 00:01 Last Admin: 10/31/23 11:46 Dose: 600 mg Gabapentin (Gabapentin 600 Mg Tab) 600 mg PO Q24H [facility] Stop: 11/02/23 00:01 Lorazepam 1 mg/ Syringe 1 mls @ 2 mls/min IV ONE PRN; Protocol PRN Reason: EtoH Withdrawal AWSS 6-10 Miscellaneous (Remove Nicoderm Patch) 1 each N/A DAILY@0859 [facility] Stop: 11/28/23 11:58 Last Admin: 10/31/23 08:04 Dose: 1 each Nicotine (Nicotine 21 Mg/24 Hr Tdsy) 1 patch TD QAM [facility] Stop: 11/28/23 11:59 Last Admin: 10/31/23 08:04 Dose: 1 patch Quetiapine Fumarate (Quetiapine Fumarate 300 Mg Tablet) 300 mg PO HS [facility] Stop: 11/29/23 20:59 Last Admin: 10/30/23 21:55 Dose: 300 mg Simvastatin (Simvastatin 10 Mg Tab) 10 mg PO PM [facility] Stop: 11/29/23 20:59 Last Admin: 10/30/23 21:55 Dose: 10 mg Thiamine HCl (Thiamine Hcl 100 Mg Tab) 100 mg PO QAM [facility] Stop: 11/29/23 08:59 Last Admin: 10/31/23 08:03 Dose: 100 mg Mental Health & Subst Abuse Tx Therapist Name of Therapist: None Theater Projectionist Name of Theater Projectionist: None Post Discharge Appointments Primary Care Physician Name Of Family Doctor/PCP: None (2) COPD (chronic obstructive pulmonary disease) COPD type: unspecified COPD Qualified Code(s): J44.9 - Chronic obstructive pulmonary disease, unspecified
--- NOTE | 2023-10-31 14:18 | Discharge Summary ---
Discharge Summary Date of Service October 31, 2023 Principal Dx & Hospital Course #1 = Principal Diagnosis (1) Depression with suicidal ideation: (2) COPD (chronic obstructive pulmonary disease): Suicidal Ideation Severe Depression Bipolar Disorder Anxiety - Admit to med surg - Pt currently denies suicidal ideations, he wishes to pursue treatment for his alcohol use disorder and psych diagnoses and will be discharge to rehab [place] at a dual treatment facility - suicide precautions lifted as this has resolved - Psych consulted and appreciate recommendations - UDS positive for benzo. Negative for other illicit drug use, pt denies illicit drug use. - Psych on board and plan is for dual treatment at facility, discussed with Dr. Crane that from medical standpoint we are ok to pursue facility - He currently is medically stable w/o signs or symptoms of withdrawal - he will complete gabapentin taper on discharge - Plan to discharge with Seroquel 300mg at HS and hydroxyzine 50mg daily prn for anxiety Alcohol Use with intoxication - lab abnormalities resolved - heavily drinks alcohol, between #6-12 , 16oz cans per day. His last drink was at home day before admission - No signs of withdrawal, he will finish gabapentin taper 10/31 a.m. He has two more doses 600mg evening of 10/30 and 600mg am. of 10/31 - AWSS protocol with gabapentin taper, prn IV ativan - consider starting Naltrexone 50mg daily at rehab Hypoxia in ED - now resolved Tobacco abuse - suspect underlying lung disease - Covid/flu/rsv negative - CXR is negative for acute findings - Will order duonebs scd Q4H and Q2H prn, performist, budesonide to maximize breathing efforts - Cough chronic, unchanged. If anything new can consider CT of the chest - suspect pt may have underlying COPD given tobacco abuse, will need PFTS as outpt - will not pursue oral steroids due to psych history -Will transition to Breo and prn albuterol at discharge HLD pt reports hx of such and previously on medication for this lipid panel reviewed and independently interpreted total chol 219, trig 182, LDL 124 will start simvastatin as this is on [facility] 4$ list Right Otitis Externa pt with edema to anterior aspect of R EAC on ciprodex bid x 7 days, will continue Discharge to Dual [place] Pt was seen and examined in collaboration with Dr. Ryan, please see addendum Notes For Next Care Provider Pt will need a PCP established upon discharge from rehab. Recommend continuing above medications. Recommend formal PFT testing done as outpatient. Pt was utilizing nicotine patch while hospitalized and may benefit from continuing. He will complete his gabapentin taper 10/31 a.m. for alcohol withdrawal protocol. He is not exhibiting any signs of withdrawal on discharge. Medication Changes From Visit General: awake, alert, no apparent distress, elderly male with Head: Normocephalic, atraumatic ENT: PERRL, EOMI, no pharyngeal exudate, mucous membranes moist Chest: Clear to auscultation, on room air, no adventitious breath sounds Cardiac: Regular rate and rhythm, no murmur, no JVD, normal peripheral pulses, good capillary refill Abdominal: NABS x 4 quadrants, soft, nondistended, nontender to palpation, no rebound or guarding Extremities: Normal inspection, no peripheral edema or erythema, calfs nontender to palpation Psych: + suicidal ideation, + depression, Flat mood, no homicidal ideation Neuro: AAO x 3, strength intact bilaterally and rated 5/5, no motor deficits, speech is clear, no peripheral sensory deficits Admission HPI Per Admitting Provider This is a 57-year-old male with PMHx of Brain aneurysm reported this was found after imaging of the head status post a fall which occurred about 16 months ago in [place], mood disorder, bipolar, anxiety/depression, possible schizoaffective disorder, who presented to the ER overnight last night for suicidal ideations. He resides in [place], is here locally currently visiting a friend in [place]. It is noted that on admission last evening he was intoxicated with alcohol level of 137. CM attempted placement at 8 facilities which were not able to accept the patient due to oxygen requirements. Pt desatted overnight with lowest o2 of 87% charted, and is currently on 2L O2. Pt with presumed hx of COPD, with smoking 1 pack/day since he was a teenager. He reports that he heavily drinks alcohol, between #6-12 , 16oz cans per day. His last drink was at home yesterday. Last evening the patient presented to the ER voluntarily due to suicidal ideations. When asked about his plan he states that he sometimes thinks that he is going to shoot himself with a gun, wants to be run over by a train or hit by a car, both of which he has access to his he lives [place] a train station/railroad where his plan would be to get drunk to pass out and lie down on the railroad track. He denies any homicidal ideations now or ever in the past. He reports that he sometimes hears voices telling him to harm himself whenever he starts to come off of alcohol. He denies specific visual hallucinations. Patient admits that he drinks to reduce the amount of voices and depressed state. Previously been told that he has a history of bipolar with disorder with depressed features, stating that he never has episodes of high energy or mood/bashir. He denies having a close support system with his other siblings. He has a friend who is staying with currently, but wishes to go back home to [place] sometime soon. 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 States that he does have [employer] health insurance. Denies any illicit drug use. Patient admits to taking a dose of Seroquel about 4 days ago that a friend gave him because of having racing thoughts. He states that he slept probably 8 hours in the past week on and off, that it is worse recently with his mood changes. He has admitted that this has happened in the past. Past medication trials include Abilify, Risperdal, Thorazine, Xanax, gabapentin for pain. He tried Zoloft early on in life which caused a seizure. Pt is not currently seen by psychiatry, counselor or therapist. He is willing to go to alcohol rehab as well as psych inpatient stay. Family Hx: Patient has multiple family members with psychiatric illness including his maternal grandfather who had schizophrenia, as well as father, paternal grandfather with bipolar. Surgical Hx: denies any surgical history. Admission Exam Per Admitting Provider General: awake, alert, no apparent distress, elderly male with Head: Normocephalic, atraumatic ENT: PERRL, EOMI, no pharyngeal exudate, mucous membranes moist Chest: Clear to auscultation, on room air, no adventitious breath sounds Cardiac: Regular rate and rhythm, no murmur, no JVD, normal peripheral pulses, good capillary refill Abdominal: NABS x 4 quadrants, soft, nondistended, nontender to palpation, no rebound or guarding Extremities: Normal inspection, no peripheral edema or erythema, calfs nontender to palpation Psych: + suicidal ideation, + depression, Flat mood, no homicidal ideation Neuro: AAO x 3, strength intact bilaterally and rated 5/5, no motor deficits, speech is clear, no peripheral sensory deficits Discharge Exam Gen: WD/WN, NAD, A&O x3 HEENT: Normocephalic, atraumatic, conjunctivae moist, sclerae anicteric, mucous membranes moist. poor dentition. Lung: Clear to Auscultation bilaterally, with bilateral wheezes no rales/rhonchi Heart: Regular rate, regular rhythm, no murmurs, rubs, or gallops Abdomen: Soft, NT, ND +BS x 4 Extremities: No edema Skin: Warm, no rash, negative turgor. Updated Medication List Medication Instructions Recorded Confirmed Type albuterol sulfate 90 mcg/actuation 1 inh inhalation Q6H PRN shortness 10/31/23 Rx breath activated powder of breath or wheezing #1 ea inhaler,sensor (Proair Digihaler) ciprofloxacin 0.3 %-dexamethasone 4 drp otic (ear) BID #7.5 mL 10/31/23 Rx 0.1 % ear drops,suspension fluticasone furoate 100 1 inh inhalation DAILY #60 ea 10/31/23 Rx mcg-vilanterol 25 mcg/dose inhalation powder (Breo Ellipta) folic acid 400 mcg tablet 400 mcg PO QAM #30 tabs 10/31/23 Rx gabapentin 600 mg tablet,extended 600 mg PO UD #2 tabs 10/31/23 Rx release 24 hr hydroxyzine HCl 50 mg tablet 50 mg PO DAILY PRN anxiety #14 tabs 10/31/23 Rx quetiapine 300 mg tablet 300 mg PO HS #30 tabs 10/31/23 Rx simvastatin 10 mg tablet 10 mg PO PM #30 tabs 10/31/23 Rx thiamine HCl (vitamin B1) 100 mg 100 mg PO QAM #30 tabs 10/31/23 Rx tablet Hospital Stay Data Consultations 10/29/23 10:12 ED Decision to Admit Stat 10/29/23 11:36 Consult Psychiatry Routine Diagnostic Imagining Performed Chest X-Ray 10/29/23 03:23 XR chest 1V portable CLINICAL HISTORY: h/o emphysema COMPARISON STUDY: No previous studies for comparison. FINDINGS: Lung volumes are normal. There is no consolidation. Linear right basilar density represents atelectasis. No pulmonary nodules are identified although sensitivity is diminished given radiographic technique. There is no pneumothorax or pleural effusion. Cardiac size is normal. Mediastinal contours are normal. There is no evidence for pulmonary edema. IMPRESSION: No acute cardiopulmonary findings. ACT 112: Negative or not required by law. Electronically signed by: Dorian Rosa M.D. 10/29/2023 6:34 AM Pending Results Patient Have Any Pending Studies at Discharge: No Discharge Instructions Given to Patient (Per Discharging Provider) RECOMMENDATIONS FOR FOLLOW-UP: Please establish with a primary care provider upon discharge from rehab. It is strongly encouraged that you abstain from any alcohol or tobacco products. You were diagnosed with high cholesterol and started on a medication called simvastatin. It is recommended that you have your cholesterol level checked in 6 months. This medication can be prescribed and purchased at a [facility] pharmacy for $4 a month. It is recommended that you have outpatient pulmonary function testing done to determine if you have any underlying lung disease due to your history of smoking. At discharge you are being prescribed an inhaler, BREO. This inhaler is a combination inhaler that includes a steroid and a long acting dilator of your airways. Please rinse your mouth with mouthwash after each use. It is strongly encouraged you use this every day to notice the benefit of the medication. You are also being prescribed an as needed albuterol inhaler. This is to be used only NEEDED when you feel short of breath or you are wheezing. Please continue to take daily thiamine and folic acid supplementations due to history of alcohol use. Continue taking eardrops twice daily through 11/05/23 due to infection in your right ear canal. You are being prescribed 2 more doses of gabapentin to complete a taper to prevent withdrawal. OTHER INSTRUCTIONS: Seek medical attention if you have: * temperature above 101 * chest pain or trouble breathing * abdominal pain, nausea, vomiting * diarrhea, dark stools or bloody stools * any unanswered questions or concerns Call 911 if symptoms are severe. Please take good care of yourself. It has been a pleasure taking care of you. Please take care of yourself. If you have any questions regarding your recent hospitalization please contact [facility] and request Luis Alberto Krueger @ [phone]. Total Time Total Time Spent Total Time Spent (In Minutes): 45 minutes Supervising Physician Co-Signing Physician Notes 57-year-old male with PMH of brain aneurysm, mood disorder, bipolar, anxiety/depression, possible schizoaffective disorder presented to the ED 10/28 with suicidal ideation. He was seen and examined at bedside. Patient denies any further suicidal ideation today. He is also being managed for alcohol use with intoxication. Undergoing [facility] S protocol. Psychiatry on board, plan to discharge him to dual treatment facility. Patient medically stable for dual treatment facility. I have reviewed the advanced practitioner's documentation, and I agree with, and take responsibility for the plan of care I spent a total of __20___ minutes coordinating, documenting, and providing care for this patient excluding time spent in the performance of separately billed services. All of the aforementioned completed while collaborating with the assigned advanced practitioner for a full treatment plan
[2023-10-31 15:40] VITALS: PULSE 86; RESP 12; O2SAT 98
[2023-11-02] MEDS ORDERED: GABAPENTIN 600 MG TAB PO SCH
== END 2023-10-31 15:57 | disposition alcohol treatment (31) | DRG 191 ==
LOC: ED 23:07 → EDINP 10-29 10:45 → SUATTDRO 10-29 10:45 → 3E 10-29 19:34
DX: F10.229 Alcohol dependence with intoxication, unspecified; J44.9 Chronic obstructive pulmonary disease, unspecified; Y90.6 Blood alcohol level of 120-199 mg/100 ml; F41.1 Generalized anxiety disorder; E78.5 Hyperlipidemia, unspecified; H60.91 Unspecified otitis externa, right ear; R44.0 Auditory hallucinations; F17.210 Nicotine dependence, cigarettes, uncomplicated; Z99.81 Dependence on supplemental oxygen; R09.02 Hypoxemia; E86.0 Dehydration; F32.A Depression, unspecified; I67.1 Cerebral aneurysm, nonruptured; Z91.199 Patient's noncompliance with other medical treatment and regimen due to unspecified reason; F31.9 Bipolar disorder, unspecified; R45.851 Suicidal ideations